=== PATIENT | female | born 1995 | race Caucasian/White ===

== ENCOUNTER 2017-06-29 10:08 | Inpatient (IN) | payer OTHER ==
[2017-06-29 11:49] VITALS: BMI 27.2
--- NOTE | 2017-06-29 13:39 | HP ---
COWS - Scale Resting Pulse: 4= [place] > 121 Sweatin= Chills/Flushing Restless Observation: 1= Difficult to Sit Still Pupil Size: 1= Pupils >than Normal Bone or Joint Aches: 2= Severe Diffuse Aches Runny Nose/ Eye Tearin= Runny Nose/Eyes GI Upset > 30mins: 2= Nausea/Diarrhea Tremor Observation: 2= Slight Tremor Visible Yawning Observation: 2= >3x During Session Anxiety or Irritability: 2=Irritable/Anxious Goose Flesh Skin: 0=Smooth Skin COWS Score: 19 Admission ROS S - HPI Chief Complaint: WITHDRAWAL SX OPIOID Allergies/Adverse Reactions: Allergies Allergy/AdvReac Type Severity Reaction Status Date / Time No Known Allergies Allergy Verified 06/29/17 13:34 History of Present Illness: 22 YEARS OLD FEMALE WITH LONG HISTORY OF OPIOID NICOTINE DEPENDENCE HAS SELF HARM BEHAVIOR CUT LEFT WRIST 2016 AND ANXIETY DEPRESSION IS ADMITTED TO DETOX Exam Limitations: No Limitations - Ebola screening Have you traveled outside of the country in the last 21 days: No (N) Have you had contact with anyone from an Ebola affected area: No Have you been sick,other than usual withdrawal symptoms: No Do you have a fever: No - Review of Systems Constitutional: Changes in sleep, Weight Stable EENT: reports: No Symptoms Reported Respiratory: reports: No Symptoms reported Cardiac: reports: No Symptoms Reported GI: reports: Diarrhea, Nausea, Poor Fluid Intake, Indigestion, Abdominal cramping : reports: No Symptoms Reported Musculoskeletal: reports: Back Pain, Joint Pain, Muscle Pain, Neck Pain Integumentary: reports: No Symptoms Reported Neuro: reports: Tremors Endocrine: reports: No Symptoms Reported Hematology: reports: No Symptoms Reported Psychiatric: reports: Judgement Intact, Orientated x3, Anxious, Depressed Other Systems: Reviewed and Negative Patient History - Patient Medical History Hx Anemia: No Hx Asthma: No Hx Chronic Obstructive Pulmonary Disease (COPD): No Hx Cancer: No Hx Cardiac Disorders: No Hx Congestive Heart Failure: No Hx Hypertension: No Hx Hypercholesterolemia: No Hx Pacemaker: No HX Cerebrovascular Accident: No Hx Seizures: No Hx Dementia: No Hx Diabetes: No Hx Gastrointestinal Disorders: No Hx Liver Disease: No Hx Genitourinary Disorders: No Hx Sexually Transmitted Disorders: No Hx Renal Disease (ESRD): No Hx Thyroid Disease: No Hx Human Immunodeficiency Virus (HIV): No Hx Hepatitis C: No Hx Depression: Yes Hx Suicide Attempt: Yes (2017 CUT LEFT WRIST) Hx Bipolar Disorder: No Hx Schizophrenia: No - Patient Surgical History Past Surgical History: No - PPD History Previous Implant?: Yes Documented Results: Negative w/o proof Implanted On Prior [facility] Admission?: No PPD to be Administered?: Yes - Reproductive History Patient is a Female of Child Bearing Age (11 -55 yrs old): Yes Last Menstrual Period: 06/15/17 Patient : No - Smoking Cessation Smoking history: Current every day smoker Have you smoked in the past 12 months: Yes Aproximately how many cigarettes per day: 20 Cigars Per Day: 0 Hx Chewing Tobacco Use: No Initiated information on smoking cessation: Yes 'Breaking Loose' booklet given: 06/29/17 - Substance & Tx. History Hx Alcohol Use: Yes Hx Substance Use: Yes Substance Use Type: Alcohol, Cocaine, Heroin Hx Substance Use Treatment: No ([facility]) Family Disease History - Family Disease History Family Disease History: Heart Disease: Father (), Other: Father, Mother (REMARRIED NO CONTACT) Other Family History: ONLY CHILD Admission Physical Exam S - Vital Signs Vital Signs: Vital Signs - 24 hr 06/29/17 11:45 Temperature 98.2 F Pulse Rate 128 H Respiratory 18 Rate Blood Pressure 144/84 - Physical General Appearance: Yes: Appropriately Dressed, Moderate Distress, Tremorous, Irritable, Sweating, Anxious HEENTM: Yes: Hearing grossly Normal, Normocephalic, Normal Voice Respiratory: Yes: Chest Non-Tender, Lungs Clear, Normal Breath Sounds, No Respiratory Distress, No Accessory Muscle Use Neck: Yes: Supple, Trachea in good position Breast: Yes: Breasts Symetrical, No Discharge Cardiology: Yes: Regular Rhythm, S1, S2, Tachycardia Abdominal: Yes: Non Tender, Flat, Increased Bowel Sounds Genitourinary: Yes: Within Normal Limits Back: Yes: Normal Inspection Musculoskeletal: Yes: full range of Motion, Gait Steady, Back pain, Muscle Pain Extremities: Yes: Normal Inspection, Normal Range of Motion, Non-Tender, Tremors Neurological: Yes: Fully Oriented, Alert, Motor Strength 5/5, Normal Response, Depressed Affect Integumentary: Yes: Warm Lymphatic: Yes: Within Normal Limits - Diagnostic (1) Opioid dependence with withdrawal Current Visit: Yes Status: Acute (2) Nicotine dependence Current Visit: Yes Status: Acute Qualifiers: Nicotine product type: cigarettes Substance use status: in withdrawal Qualified Code(s): F17.213 - Nicotine dependence, cigarettes, with withdrawal (3) Anxiety Current Visit: Yes Status: Suspected (4) Family history of sudden cardiac in father Current Visit: Yes Status: Suspected Cleared for Admission [facility] - Detox or Rehab [facility] Level of Care: Medically Managed Detox Regimen/Protocol: Methadone [facility] Breath Alcohol Content Breath Alcohol Content: 0.026 Urine Pregancy Test - Result Urine Test Results: Negative- NO Line Present Urine Drug Screen - Control Is Test Valid: Yes - Results Drug Screen Negative: No Urine Drug Screen Results: THC-Marijuana, PARMINDER-Cocaine, OPI-Opiates
[2017-06-29] MEDS ORDERED: LOPERAMIDE HCL 2 MG CAPSULE PO PRN (13:53)
[2017-06-29] MEDS ORDERED: MAGNESIUM CITRATE 300 ML BOTTLE PO PRN (13:53)
[2017-06-29] MEDS ORDERED: P-EPHED 60MG/TRIPROLIDI 2.5MG TABLET PO PRN (13:53)
[2017-06-29] MEDS ORDERED: MENTHOL/PHENOL 1 EACH UD MM PRN (13:53)
[2017-06-29] MEDS ORDERED: MAGNESIUM HYDROX 2400MG/30ML ORAL SUSPENSION 30 ML CUP PO PRN (13:53)
[2017-06-29] MEDS ORDERED: IBUPROFEN 400 MG TABLET (FP) PO PRN (13:53)
[2017-06-29] MEDS ORDERED: ACETAMINOPHEN 325 MG TABLET (FP) PO PRN (13:53)
[2017-06-29] MEDS ORDERED: guaiFENesin/D-METHORPHAN HB 10 ML UNIT-DOSE CUPS PO PRN (13:53)
[2017-06-29] MEDS ORDERED: MAG HYDROX/AL HYDROX/SIMETH 30 ML UNIT-DOSE CUP PO PRN (13:53)
[2017-06-29] MEDS ORDERED: METHADONE HCL 10 MG TABLET (FOR DETOX USE ONLY) PO ONE ×2 (14:45→23:00)
[2017-06-29] MEDS: diazePAM 5 MG TABLET PO PRN ×2 (15:23→19:38)
[2017-06-29] MEDS: NICOTINE 21 MG/24 HOURS TOPICAL PATCH TD SCH (15:29)
[2017-06-29 19:37] LABS: URINE APPEARANCE TURBID; URINE BILIRUBIN NEGATIVE (<2.0 mg/dL); URINE COLOR AMBER; URINE GLUCOSE (UA) NEGATIVE (NEGATIVE); URINE KETONE TRACE (NEGATIVE); URINE NITRITE NEGATIVE (NEGATIVE); URINE PROTEIN NEGATIVE (NEGATIVE)
[2017-06-29 19:44] LABS: URINE LEUK ESTERASE 3+ (NEGATIVE)
[2017-06-29 20:00] LABS: EPI CELLS MODERATE /HPF (FEW); URINE BACTERIA RARE /hpf (NONE SEEN); URINE MUCUS RARE
[2017-06-29] MEDS: NICOTINE POLACRILEX 2 MG GUM BUC PRN ×2 (20:05→22:11)
[2017-06-29] MEDS ORDERED: THIAMINE HCL 100 MG TABLET (FP) PO SCH (22:00)
[2017-06-29] MEDS ORDERED: MELATONIN 5 MG TABLETS PO PRN (22:00)
[2017-06-30] MEDS: diazePAM 5 MG TABLET PO PRN (06:39)
[2017-06-30] MEDS ORDERED: PRENATAL VITAMINS W/ FOLIC ACID TABLET (FP) PO SCH (10:00)
[2017-06-30] MEDS ORDERED: METHADONE HCL 10 MG TABLET (FOR DETOX USE ONLY) PO ONE (10:00)
--- NOTE | 2017-06-30 10:06 | EKG ---
Test Reason : Blood Pressure : / mmHG Vent. Rate : 072 BPM Atrial Rate : 072 BPM P-R Int : 122 ms QRS Dur : 088 ms QT Int : 382 ms P-R-T Axes : 038 072 048 degrees QTc Int : 418 ms NORMAL SINUS RHYTHM WITH SINUS ARRHYTHMIA NO PREVIOUS ECGS AVAILABLE Confirmed by RICHARD TOUSSAINT MD ([id number]) on 06/30/2017 10:06:32 AM Referred By: Confirmed By:RICHARD TOUSSAINT MD
[2017-06-30 10:13] VITALS: BP 130/80; PULSE 84; TEMP 99.1
[2017-06-30 10:13] LABS: HEMATOCRIT 39.3 % (32.4-45.2); HEMOGLOBIN 13.4 GM/dL (10.7-15.3); MCH 31.3 pg (25.7-33.7); MCHC 34.2 g/dl (32.0-36.0); MEAN CELL VOLUME 91.7 fl (80-96); MEAN PLT VOLUME 9.2 fl (7.5-11.1); PLATELET COUNT 276 K/MM3 (134-434); RBC 4.29 M/mm3 (3.60-5.2); RDW 12.7 % (11.6-15.6); WHITE BLOOD COUNT 6.4 K/mm3 (4.0-10.0)
--- NOTE | 2017-06-30 10:29 | CONSULT ---
[facility] Psychiatric Consult - Data Date of interview: 06/30/17 Admission source: [facility] Identifying data: Patient is a 22 year old single female, without kids, unemployed, and currently living with her boyfriend. Patientadmitted to for opiate dependence. Substance Abuse History: Following information confirmed with Mr. Canales: - Smoking Cessation. Smoking history: Current every day smoker. Have you smoked in the past 12 months: Yes. Aproximately how many cigarettes per day: 20. Cigars Per Day: 0. Hx Chewing Tobacco Use: No. Initiated information on smoking cessation: Yes. 'Breaking Loose' booklet given: 06/29/17. - Substance & Tx. History. Hx Alcohol Use: Yes. Hx Substance Use: Yes. Substance Use Type : Alcohol, Cocaine, Heroin. Hx Substance Use Treatment: No ([facility]) Medical History: Denies. Psychiatric History: Pt. reports admission to the psychiatric emergency room in 2016 after becoming intoxicated and cutting her left forearm. In 2015 patient was taken to [facility] after a friend reported to paramedics that she was endorsing suicidal ideation. Both emergency rooms admissions did not result in a inpatient psychiatric admission. Pt. denies h/o outpatient care. Pt. currently denies suicidal and homicidal ideation. Physical/Sexual Abuse/Trauma History: Denies. Mental Status Exam - Mental Status Exam Alert and Oriented to: Time, Place, Person Cognitive Function: Good Patient Appearance: Well Groomed Mood: Hopeful Affect: Mood Congruent Patient Behavior: Cooperative Speech Pattern: Appropriate Voice Loudness: Normal Thought Process: Goal Oriented Thought Disorder: Not Present Hallucinations: Denies Suicidal Ideation: Denies Homicidal Ideation: Denies Insight/Judgement: Poor Sleep: Poorly Appetite: Fair Muscle strength/Tone: Normal Gait/Station: Normal Psychiatric Findings - Problem List ([place] 1, 2,3) (1) Insomnia Current Visit: Yes Status: Acute (2) Nicotine dependence Current Visit: Yes Status: Acute Qualifiers: Nicotine product type: cigarettes Substance use status: in withdrawal Qualified Code(s): F17.213 - Nicotine dependence, cigarettes, with withdrawal (3) Opioid dependence with withdrawal Current Visit: Yes Status: Acute (4) Substance induced mood disorder Current Visit: Yes Status: Suspected - Initial Treatment Plan Initial Treatment Plan: Psychoeducation provided. Detoxification in progress. Benadryl 50mg qhs + Vistaril 25mg qhs prn ordered. Benefits and side effects discussed. Verbal consent given.
[2017-06-30 10:33] LABS: CHLORIDE 106 mmol/L (98-107); SODIUM 137 mmol/L (136-145)
[2017-06-30] MEDS: NICOTINE 21 MG/24 HOURS TOPICAL PATCH TD SCH (10:36)
[2017-06-30 10:40] LABS: ALBUMIN 4.6 g/dl (3.4-5.0); ALK PHOS 85 U/L (45-117); ANION GAP 6 (8-16); BILIRUBIN,TOTAL 0.5 mg/dL (0.2-1.0); BLOOD UREA NITROGEN 11 mg/dL (7-18); CALCIUM 9.4 mg/dL (8.5-10.1); CO2 25 mmol/L (21-32); CREATININE 0.8 mg/dL (0.55-1.02); GLUCOSE,RANDOM 99 mg/dL (74-106); SGOT/AST 29 U/L (15-37); SGPT/ALT 60 U/L (12-78); TOT PROT 7.7 g/dl (6.4-8.2)
--- NOTE | 2017-06-30 10:44 | PN ---
[facility] COWS - Scale Resting Pulse: 1= [place] 81-100 Sweatin= Chills/Flushing Restless Observation: 3= Extraneous Movement Pupil Size: 1= Pupils >than Normal Bone or Joint Aches: 2= Severe Diffuse Aches Runny Nose/ Eye Tearin= Runny Nose/Eyes GI Upset > 30mins: 2= Nausea/Diarrhea Tremor Observation of Outstretched Hands: 2= Slight Tremor Visible Yawning Observation: 1= 1-2x During Session Anxiety or Irritability: 2=Irritable/Anxious Goose Flesh Skin: 0=Smooth Skin COWS Score: 17 S Progress Note (SOAP) Subjective: ALERT,IRRITABLE,ANXIOUS,INTERRUPTED SLEEP,PAIN IN THE BODY AND BACK,TREMOR Objective: 06/30/17 10:40 Vital Signs Temperature 99.1 F 06/30/17 10:00 Pulse Rate 84 06/30/17 10:00 Respiratory Rate 16 06/30/17 10:00 Blood Pressure 130/80 06/30/17 10:00 O2 Sat by Pulse Oximetry (%) EKG NSR,WITH SINUS ARRHYTHMIA,NORMAL ECG PROLONG QT 382/418 06/30/17 10:56 Laboratory Last Values Urine Color Cel[place] 06/29/17 15:00 Urine Appearance Turbid 06/29/17 15:00 Urine pH 5.0 (5.0-8.0) 06/29/17 15:00 Ur Specific [place] 1.031 (1.001-1.035) 06/29/17 15:00 Urine Protein Negative (NEGATIVE) 06/29/17 15:00 Urine Glucose (UA) Negative (NEGATIVE) 06/29/17 15:00 Urine Ketones Trace (NEGATIVE) H 06/29/17 15:00 Urine Blood Negative (NEGATIVE) 06/29/17 15:00 Urine Nitrite Negative (NEGATIVE) 06/29/17 15:00 Urine Bilirubin Negative (<2.0 mg/dL) 06/29/17 15:00 Urine Urobilinogen 2.0 mg/dL (0.2-1.0) H 06/29/17 15:00 Ur Leukocyte Esterase 3+ (NEGATIVE) H 06/29/17 15:00 Urine WBC (Auto) 4 /hpf (3-5) 06/29/17 15:00 Urine RBC (Auto) 1 /hpf (0-3) 06/29/17 15:00 Ur Epithelial Cells Moderate /HPF (FEW) 06/29/17 15:00 Urine Bacteria Rare /hpf (NONE SEEN) 06/29/17 15:00 Urine Mucus Rare 06/29/17 15:00 RPR Titer Nonreactive (NONREACTIVE) 06/30/17 06:00 HIV 1&2 Antibody Screen Negative 06/29/17 06:00 HIV P24 Antigen Negative 06/29/17 06:00 LABS PENDING Assessment: 06/30/17 10:56 WITHDRAWAL SYMPTOM Plan: CONTINUE DETOX
--- NOTE | 2017-06-30 11:04 | DS ---
[facility] Detox Discharge Summary Admission Date: 06/29/17 Discharge Date: 06/30/17 - History Present History: Opioid Dependence Additional Comments: PATIENT DID NOT WANT TO COMPLETE TREATMENT,STATED SHE IS NOT READY TO CONTINUE TREATMENT, ALL ATTEMPTS TO CONVINCE PATIENT TO STAY WITH NO AVAIL,SIGNED RELEASE AMA Pertinent Past History: NICOTINE DEPENDENCE ANXIETY - Physical Exam Results Vital Signs: Vital Signs Temperature 99.1 F 06/30/17 10:00 Pulse Rate 84 06/30/17 10:00 Respiratory Rate 16 06/30/17 10:00 Blood Pressure 130/80 06/30/17 10:00 O2 Sat by Pulse Oximetry (%) Pertinent Admission Physical Exam Findings: WITHDRAWAL SIGNS AND SYMPTOM Vital Signs Temperature 99.1 F 06/30/17 10:00 Pulse Rate 84 06/30/17 10:00 Respiratory Rate 16 06/30/17 10:00 Blood Pressure 130/80 06/30/17 10:00 O2 Sat by Pulse Oximetry (%) Laboratory Last Values WBC 6.4 K/mm3 (4.0-10.0) 06/30/17 06:00 RBC 4.29 M/mm3 (3.60-5.2) 06/30/17 06:00 Hgb 13.4 GM/dL (10.7-15.3) 06/30/17 06:00 Hct 39.3 % (32.4-45.2) 06/30/17 06:00 MCV 91.7 fl (80-96) 06/30/17 06:00 MCH 31.3 pg (25.7-33.7) 06/30/17 06:00 MCHC 34.2 g/dl (32.0-36.0) 06/30/17 06:00 RDW 12.7 % (11.6-15.6) 06/30/17 06:00 Plt Count 276 K/MM3 (134-434) 06/30/17 06:00 MPV 9.2 fl (7.5-11.1) 06/30/17 06:00 Sodium 137 mmol/L (136-145) 06/30/17 06:00 Potassium 4.0 mmol/L (3.5-5.1) 06/30/17 06:00 Chloride 106 mmol/L (98-107) 06/30/17 06:00 Carbon Dioxide 25 mmol/L (21-32) 06/30/17 06:00 Anion Gap 6 (8-16) L 06/30/17 06:00 BUN 11 mg/dL (7-18) 06/30/17 06:00 Creatinine 0.8 mg/dL (0.55-1.02) 06/30/17 06:00 Creat Clearance w eGFR > 60 (>60) 06/30/17 06:00 Random Glucose 99 mg/dL (74-106) 06/30/17 06:00 Calcium 9.4 mg/dL (8.5-10.1) 06/30/17 06:00 Total Bilirubin 0.5 mg/dL (0.2-1.0) 06/30/17 06:00 AST 29 U/L (15-37) 06/30/17 06:00 ALT 60 U/L (12-78) 06/30/17 06:00 Alkaline Phosphatase 85 U/L (45-117) 06/30/17 06:00 Total Protein 7.7 g/dl (6.4-8.2) 06/30/17 06:00 Albumin 4.6 g/dl (3.4-5.0) 06/30/17 06:00 Urine Color Celeste 06/29/17 15:00 Urine Appearance Turbid 06/29/17 15:00 Urine pH 5.0 (5.0-8.0) 06/29/17 15:00 Ur Specific [place] 1.031 (1.001-1.035) 06/29/17 15:00 Urine Protein Negative (NEGATIVE) 06/29/17 15:00 Urine Glucose (UA) Negative (NEGATIVE) 06/29/17 15:00 Urine Ketones Trace (NEGATIVE) H 06/29/17 15:00 Urine Blood Negative (NEGATIVE) 06/29/17 15:00 Urine Nitrite Negative (NEGATIVE) 06/29/17 15:00 Urine Bilirubin Negative (<2.0 mg/dL) 06/29/17 15:00 Urine Urobilinogen 2.0 mg/dL (0.2-1.0) H 06/29/17 15:00 Ur Leukocyte Esterase 3+ (NEGATIVE) H 06/29/17 15:00 Urine WBC (Auto) 4 /hpf (3-5) 06/29/17 15:00 Urine RBC (Auto) 1 /hpf (0-3) 06/29/17 15:00 Ur Epithelial Cells Moderate /HPF (FEW) 06/29/17 15:00 Urine Bacteria Rare /hpf (NONE SEEN) 06/29/17 15:00 Urine Mucus Rare 06/29/17 15:00 RPR Titer Nonreactive (NONREACTIVE) 06/30/17 06:00 HIV 1&2 Antibody Screen Negative 06/29/17 06:00 HIV P24 Antigen Negative 06/29/17 06:00 - Medication Discharge Medications: Ambulatory Orders NK [No Known Home Medication] 06/29/17 - Diagnosis (1) Opioid dependence with withdrawal Current Visit: Yes Status: Acute (2) Nicotine dependence Current Visit: Yes Status: Acute Qualifiers: Nicotine product type: cigarettes Substance use status: in withdrawal Qualified Code(s): F17.213 - Nicotine dependence, cigarettes, with withdrawal (3) Anxiety Current Visit: Yes Status: Suspected (4) Family history of sudden cardiac in father Current Visit: Yes Status: Suspected (5) Substance induced mood disorder Current Visit: Yes Status: Suspected - AMA Did Patient Leave Against Medical Advice: Yes
[2017-07-01] MEDS ORDERED: METHADONE HCL 5 MG TABLET (FOR DETOX USE ONLY) PO ONE (10:00)
[2017-07-02] MEDS ORDERED: METHADONE HCL 5 MG TABLET (FOR DETOX USE ONLY) PO ONE (10:00)
[2017-07-03] MEDS ORDERED: METHADONE HCL 10 MG TABLET (FOR DETOX USE ONLY) PO ONE (10:00)
[2017-07-04] MEDS ORDERED: METHADONE HCL 5 MG TABLET (FOR DETOX USE ONLY) PO ONE (06:00)
== END 2017-06-30 11:30 | disposition left against medical advice (07) | DRG 770 ==
LOC: YASAS 10:08 → Y6N 14:38
PROVIDERS: ADMIT Internal Medicine; ATTEND Internal Medicine
PROC: HZ2ZZZZ Detoxification Services for Substance Abuse Treatment (ICD-10-PCS; principal; 2017-06-29)
DX: F11.23 Opioid dependence with withdrawal (principal); F17.213 Nicotine dependence, cigarettes, with withdrawal; F19.24 Other psychoactive substance dependence with psychoactive substance-induced mood disorder; F41.9 Anxiety disorder, unspecified; G47.00 Insomnia, unspecified; Z82.41 Family history of sudden cardiac death; Z91.5 Personal history of self-harm
CPT/HCPCS: 36415; 80053; 81003; 81015; 85027; 86593; 87389; 93005; 93010

== ENCOUNTER 2017-11-14 10:48 | Inpatient (IN) | payer OTHER ==
[2017-11-14 12:10] VITALS: BMI 26.2
--- NOTE | 2017-11-14 17:40 | HP ---
"COWS - Scale Resting Pulse: 1= [place] 81-100 Sweatin= Beads of Sweat on Face Restless Observation: 1= Difficult to Sit Still Pupil Size: 2= Moderately Dilated (4 mm) Bone or Joint Aches: 0= None Runny Nose/ Eye Tearin= Runny Nose/Eyes GI Upset > 30mins: 2= Nausea/Diarrhea (No diarrhea) Tremor Observation: 4= Gross Tremor/Twitching Yawning Observation: 0= None Anxiety or Irritability: 1=Feels Anxious/Irritable Goose Flesh Skin: 3=Piloerection COWS Score: 19 Admission ROS [facility] Chief Complaint: Here because of heroin withdrawal. Allergies/Adverse Reactions: Allergies Allergy/AdvReac Type Severity Reaction Status Date / Time No Known Allergies Allergy Verified 11/14/17 15:12 History of Present Illness: Heroin use began at age 20, intranasal. Cocaine use began at age 14. Xanax use disorder since age 14, intermittently. Nicotine use began at age 12. Marijuana use began at age 12. Denies seizures or blackouts. Longest length of sobriety 2 weeks after last detox at [facility]. Denies significant PMH/PSH. Search Terms: Jamar Parker, 1995 Search Date: 11/14/2017 08:20:43 PM The Drug Utilization Report below displays all of the controlled substance prescriptions, if any, that your patient has filled in the last twelve months. The information displayed on this report is compiled from pharmacy submissions to the Department, and accurately reflects the information as submitted by the pharmacies. This report was requested by: Angelique Parra | Reference #: [id number] There are no results for the search terms that you entered. Exam Limitations: No Limitations - Ebola screening Have you traveled outside of the country in the last 21 days: No Have you had contact with anyone from an Ebola affected area: No Have you been sick,other than usual withdrawal symptoms: No Do you have a fever: No - Review of Systems Constitutional: Chills, Diaphoresis, Changes in sleep (Diofficulty falling asleep) EENT: reports: No Symptoms Reported Respiratory: reports: No Symptoms reported Cardiac: reports: No Symptoms Reported GI: reports: Nausea (r/t withdrawal) : reports: No Symptoms Reported Musculoskeletal: reports: No Symptoms Reported Integumentary: reports: No Symptoms Reported Neuro: reports: Tremors (r/t withdrawal) Endocrine: reports: No Symptoms Reported Hematology: reports: No Symptoms Reported Psychiatric: reports: Judgement Intact, Orientated x3, Agitated, Anxious, Depressed (Denies thoughts of harming self or others) Patient History - Patient Medical History Hx Anemia: No Hx Asthma: No Hx Chronic Obstructive Pulmonary Disease (COPD): No Hx Cancer: No Hx Cardiac Disorders: No Hx Congestive Heart Failure: No Hx Hypertension: No Hx Hypercholesterolemia: No Hx Pacemaker: No HX Cerebrovascular Accident: No Hx Seizures: No Hx Dementia: No Hx Diabetes: No Hx Gastrointestinal Disorders: No Hx Liver Disease: No Hx Genitourinary Disorders: No Hx Sexually Transmitted Disorders: No Hx Renal Disease (ESRD): No Hx Thyroid Disease: No Hx Human Immunodeficiency Virus (HIV): No (2018) Hx Hepatitis C: No Hx Depression: Yes Hx Suicide Attempt: No Hx Bipolar Disorder: No Hx Schizophrenia: No - Patient Surgical History Past Surgical History: No Hx Neurologic Surgery: No Hx Cataract Extraction: No Hx Cardiac Surgery: No Hx Lung Surgery: No Hx Breast Surgery: No Hx Breast Biopsy: No Hx Abdominal Surgery: No Hx Appendectomy: No Hx Cholecystectomy: No Hx Genitourinary Surgery: No Hx Section: No Hx Orthopedic Surgery: No Anesthesia Reaction: No - PPD History Previous Implant?: Yes Documented Results: Negative w/proof Implanted On Prior [facility] Admission?: Yes Date: 07/01/17 PPD to be Administered?: No - Reproductive History Patient is a Female of Child Bearing Age (11 -55 yrs old): Yes Last Menstrual Period: 10/24/17 (Usually regular) Patient : No - Smoking Cessation Smoking history: Current every day smoker Have you smoked in the past 12 months: Yes Aproximately how many cigarettes per day: 20 Cigars Per Day: 0 Hx Chewing Tobacco Use: No Initiated information on smoking cessation: Yes 'Breaking Loose' booklet given: 11/14/17 - Substance & Tx. History Hx Alcohol Use: Yes Substance Use Type: Cocaine, Heroin, Marijuana, Tranquilizers (benzo) - Substances Abused Heroin Route: Inhalation Frequency: Daily Amount used: 20-25 bags Age of first use: 20 Date of Last Use: 11/14/17 Cocaine Route: Inhalation Frequency: 1-3 times last 30 days Amount used: 1-2 bags Age of first use: 14 Date of Last Use: 11/12/17 Alprazolam (Xanax) Route: Oral Frequency: 1-3 times last 30 days Amount used: 2mg Age of first use: 14 Date of Last Use: 11/14/17 Marijuana/Hashish Route: Smoking Frequency: 3-6 times per week Amount used: 1 blunt Age of first use: 12 Date of Last Use: 11/14/17 Family Disease History - Family Disease History Family Disease History: Heart Disease: Father (), Other: Father, Mother (REMARRIED NO CONTACT) Admission Physical Exam [facility] - Vital Signs Vital Signs: Vital Signs - 24 hr 11/14/17 12:06 Temperature 97.1 F L Pulse Rate 88 Respiratory 18 Rate Blood Pressure 129/74 - Physical General Appearance: Yes: Tremorous, Sweating, Anxious HEENTM: Yes: EOMI, Hearing grossly Normal, Normal ENT Inspection, Normocephalic , NOLBERTO (4 mm), Rhinorrhea (clear) Respiratory: Yes: Chest Non-Tender, Lungs Clear, Normal Breath Sounds, No Respiratory Distress Neck: Yes: No masses,lesions,Nodules, Supple Breast: Yes: Breast Exam Deferred Cardiology: Yes: Regular Rhythm, Regular Rate, S1, S2 Abdominal: Yes: Non Tender, Flat, Soft, Increased Bowel Sounds Genitourinary: Yes: Within Normal Limits Back: Yes: Normal Inspection Musculoskeletal: Yes: full range of Motion, Gait Steady Extremities: Yes: Normal Capillary Refill, Normal Range of Motion, Non-Tender, Tremors (of hands when arms extended) Neurological: Yes: sql server developer 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 NML intact, Fully Oriented, Alert, Motor Strength 5/5, Normal Mood/Affect, Normal Response Integumentary: Yes: Normal Color, Dry (decreased skin turgor.), Warm Lymphatic: Yes: Within Normal Limits - Diagnostic (1) Cocaine abuse, uncomplicated Current Visit: Yes Status: Chronic (2) Cannabis abuse, uncomplicated Current Visit: Yes Status: Chronic (3) Nicotine dependence Current Visit: Yes Status: Acute Qualifiers: Nicotine product type: cigarettes Substance use status: in withdrawal Qualified Code(s): F17.213 - Nicotine dependence, cigarettes, with withdrawal (4) Opioid dependence with withdrawal Current Visit: Yes Status: Acute (5) Sedative, hypnotic or anxiolytic abuse, uncomplicated Current Visit: Yes Status: Chronic Cleared for Admission [facility] - Detox or Rehab [facility] Level of Care: Medically Managed Detox Regimen/Protocol: Methadone [facility] Breath Alcohol Content Breath Alcohol Content: 0 Urine Pregancy Test - Result Urine Test Results: Negative- NO Line Present Urine Drug Screen - Results Drug Screen Negative: No Urine Drug Screen Results: THC-Marijuana, PARMINDER-Cocaine, OPI-Opiates, BZO- Benzodiazepines, FEN-Fentanyl"
[2017-11-14] MEDS ORDERED: MENTHOL/PHENOL 1 EACH UD MM PRN (18:08)
[2017-11-14] MEDS ORDERED: MAG HYDROX/AL HYDROX/SIMETH 30 ML UNIT-DOSE CUP PO PRN (18:08)
[2017-11-14] MEDS ORDERED: MAGNESIUM CITRATE 300 ML BOTTLE PO PRN (18:08)
[2017-11-14] MEDS ORDERED: NICOTINE POLACRILEX 2 MG GUM BC PRN (18:08)
[2017-11-14] MEDS ORDERED: IBUPROFEN 400 MG TABLET (FP) PO PRN (18:08)
[2017-11-14] MEDS ORDERED: P-EPHED 60MG/TRIPROLIDI 2.5MG TABLET PO PRN (18:08)
[2017-11-14] MEDS ORDERED: ACETAMINOPHEN 325 MG TABLET (FP) PO PRN (18:08)
[2017-11-14] MEDS ORDERED: MAGNESIUM HYDROX 2400MG/30ML ORAL SUSPENSION 30 ML CUP PO PRN (18:08)
[2017-11-14] MEDS ORDERED: LOPERAMIDE HCL 2 MG CAPSULE PO PRN (18:08)
[2017-11-14] MEDS ORDERED: guaiFENesin/D-METHORPHAN HB 10 ML UNIT-DOSE CUPS PO PRN (18:08)
[2017-11-14] MEDS ORDERED: METHADONE HCL 10 MG TABLET (FOR DETOX USE ONLY) PO ONE ×2 (18:45→23:00)
[2017-11-14] MEDS ORDERED: diazePAM 5 MG TABLET PO ONE (18:45)
[2017-11-14] MEDS ORDERED: MELATONIN 5 MG TABLETS PO PRN (22:00)
[2017-11-14] MEDS: diazePAM 5 MG TABLET PO SCH (22:53)
[2017-11-14] MEDS: THIAMINE HCL 100 MG TABLET (FP) PO SCH (22:53)
[2017-11-15 01:00] LABS: URINE APPEARANCE CLOUDY; URINE BILIRUBIN NEGATIVE (<2.0 mg/dL); URINE COLOR YELLOW; URINE GLUCOSE (UA) NEGATIVE (NEGATIVE); URINE KETONE NEGATIVE (NEGATIVE); URINE NITRITE NEGATIVE (NEGATIVE); URINE PROTEIN NEGATIVE (NEGATIVE); URINE UROBILINOGEN NEGATIVE mg/dL (0.2-1.0)
[2017-11-15 01:05] LABS: URINE LEUK ESTERASE 1+ (NEGATIVE)
[2017-11-15 01:08] LABS: EPI CELLS MANY /HPF (FEW); URINE BACTERIA RARE /hpf (NONE SEEN); URINE MUCUS FEW
[2017-11-15] MEDS: diazePAM 5 MG TABLET PO SCH ×3 (07:00→22:42)
--- NOTE | 2017-11-15 09:10 | CONSULT ---
[facility] Psychiatric Consult - Data Date of interview: 11/15/17 Admission source: [facility] Identifying data: This is 22 years old obese female, single mother of two, domiciled, with no finantial support, with psychiatric hospitalization mari , reports Heroin, Cocasine, Xanax and Nixcotine dependece, reports withdrawal symptoms and seeking detox. Substance Abuse History: Smoking history: Current every day smoker. Have you smoked in the past 12 months: Yes. Aproximately how many cigarettes per day: 20. Cigars Per Day: 0. Hx Chewing Tobacco Use: No. Initiated information on smoking cessation: Yes. 'Breaking Loose' booklet given: 11/14/17. - Substance & Tx. History. Hx Alcohol Use: Yes. Substance Use Type: Cocaine, Heroin, Marijuana, Tranquilizers (benzo). - Substances Abused. Heroin. Route: Inhalation. Frequency: Daily. Amount used: 20-25 bags. Age of first use: 20. Date of Last Use: 11/14/17. Cocaine. Route: Inhalation. Frequency: 1-3 times last 30 days. Amount used: 1-2 bags. Age of first use: 14. Date of Last Use: 11/12/17. Alprazolam (Xanax). Route: Oral. Frequency: 1-3 times last 30 days. Amount used: 2mg. Age of first use: 14. Date of Last Use: 11/14. Marijuana/Hashish. Route: Smoking. Frequency: 3-6 times per week. Amount used: 1 blunt. Age of first use: 12. Date of Last Use: 11/14/17 Medical History: Denies Psychiatric History: Patient reports history of depression and anxiwety, reports uncleat psychiatrioc admission on 2012, denies suicidal, homicidal history, reports currently on: Paxil 40mg poqd. As per computer there is a history of MDD Physical/Sexual Abuse/Trauma History: Denies Additional Comment: Paxil 40mg poqd Mental Status Exam - Mental Status Exam Alert and Oriented to: Person Cognitive Function: Fair Patient Appearance: Unkempt Mood: Sad Affect: Flat Patient Behavior: Sedated Speech Pattern: Inappropriate Voice Loudness: Mildly Soft/Quiet Thought Process: Goal Oriented Thought Disorder: Being Controlled Hallucinations: Denies Suicidal Ideation: Denies Homicidal Ideation: Denies Insight/Judgement: Fair Sleep: Difficulty falling asleep Appetite: Weight gain Muscle strength/Tone: Mild Hypotonicity Gait/Station: Shuffling Additional Comments: Paxil 40mg poqd Psychiatric Findings - Problem List ([place] 1, 2,3) (1) Nicotine dependence Current Visit: Yes Status: Acute Qualifiers: Nicotine product type: cigarettes Substance use status: in withdrawal Qualified Code(s): F17.213 - Nicotine dependence, cigarettes, with withdrawal (2) Opioid dependence with withdrawal Current Visit: Yes Status: Acute (3) Cannabis abuse, uncomplicated Current Visit: Yes Status: Chronic (4) Cocaine abuse, uncomplicated Current Visit: Yes Status: Chronic (5) Sedative, hypnotic or anxiolytic abuse, uncomplicated Current Visit: Yes Status: Chronic (6) Anxiety Current Visit: No Status: Suspected (7) Substance induced mood disorder Current Visit: No Status: Suspected - Initial Treatment Plan Initial Treatment Plan: Paxil 40mg poqd
[2017-11-15] MEDS ORDERED: METHADONE HCL 10 MG TABLET (FOR DETOX USE ONLY) PO SCH (10:00)
[2017-11-15 10:03] LABS: HEMATOCRIT 38.9 % (32.4-45.2); HEMOGLOBIN 13.1 GM/dL (10.7-15.3); MCH 30.6 pg (25.7-33.7); MCHC 33.7 g/dl (32.0-36.0); MEAN CELL VOLUME 90.9 fl (80-96); MEAN PLT VOLUME 8.9 fl (7.5-11.1); PLATELET COUNT 238 K/MM3 (134-434); RBC 4.27 M/mm3 (3.60-5.2); RDW 12.8 % (11.6-15.6); WHITE BLOOD COUNT 6.7 K/mm3 (4.0-10.0)
[2017-11-15 10:12] LABS: CHLORIDE 106 mmol/L (98-107); POTASSIUM 4.7 mmol/L (3.5-5.1); SODIUM 142 mmol/L (136-145)
[2017-11-15 10:19] LABS: ALBUMIN 3.7 g/dl (3.4-5.0); ALK PHOS 86 U/L (45-117); ANION GAP 7 MMOL/L (8-16); BILIRUBIN,TOTAL 0.1 mg/dL (0.2-1.0); BLOOD UREA NITROGEN 15 mg/dL (7-18); CO2 29 mmol/L (21-32); CREATININE 0.7 mg/dL (0.55-1.02); GLUCOSE,RANDOM 94 mg/dL (74-106); SGOT/AST 29 U/L (15-37); SGPT/ALT 44 U/L (12-78); TOT PROT 6.4 g/dl (6.4-8.2)
--- NOTE | 2017-11-15 10:44 | PN ---
S COWS - Scale Resting Pulse: 0= [place] 80 or Below Sweatin= Chills/Flushing Restless Observation: 1= Difficult to Sit Still Pupil Size: 1= Pupils >than Normal Bone or Joint Aches: 2= Severe Diffuse Aches Runny Nose/ Eye Tearin= Nasal Congestion GI Upset > 30mins: 2= Nausea/Diarrhea Tremor Observation of Outstretched Hands: 2= Slight Tremor Visible Yawning Observation: 1= 1-2x During Session Anxiety or Irritability: 2=Irritable/Anxious Goose Flesh Skin: 3=Piloerection COWS Score: 16 S Progress Note (SOAP) Subjective: sweat body aches joints pain tremor muscle cramping restlessness trouble sleep at night Objective: 11/15/17 10:44 Vital Signs Temperature 97.5 F L 11/15/17 09:21 Pulse Rate 52 L 11/15/17 09:21 Respiratory Rate 16 11/15/17 09:21 Blood Pressure 112/69 11/15/17 09:21 O2 Sat by Pulse Oximetry (%) Laboratory Last Values WBC 6.7 K/mm3 (4.0-10.0) 11/15/17 07:00 RBC 4.27 M/mm3 (3.60-5.2) 11/15/17 07:00 Hgb 13.1 GM/dL (10.7-15.3) 11/15/17 07:00 Hct 38.9 % (32.4-45.2) 11/15/17 07:00 MCV 90.9 fl (80-96) 11/15/17 07:00 MCH 30.6 pg (25.7-33.7) 11/15/17 07:00 MCHC 33.7 g/dl (32.0-36.0) 11/15/17 07:00 RDW 12.8 % (11.6-15.6) 11/15/17 07:00 Plt Count 238 K/MM3 (134-434) 11/15/17 07:00 MPV 8.9 fl (7.5-11.1) 11/15/17 07:00 Sodium 142 mmol/L (136-145) 11/15/17 07:00 Potassium 4.7 mmol/L (3.5-5.1) 11/15/17 07:00 Chloride 106 mmol/L (98-107) 11/15/17 07:00 Carbon Dioxide 29 mmol/L (21-32) 11/15/17 07:00 Anion Gap 7 MMOL/L (8-16) L 11/15/17 07:00 BUN 15 mg/dL (7-18) 11/15/17 07:00 Creatinine 0.7 mg/dL (0.55-1.02) 11/15/17 07:00 Creat Clearance w eGFR > 60 (>60) 11/15/17 07:00 Random Glucose 94 mg/dL (74-106) 11/15/17 07:00 Calcium 9.0 mg/dL (8.5-10.1) 11/15/17 07:00 Total Bilirubin 0.1 mg/dL (0.2-1.0) L 11/15/17 07:00 AST 29 U/L (15-37) 11/15/17 07:00 ALT 44 U/L (12-78) 11/15/17 07:00 Alkaline Phosphatase 86 U/L (45-117) 11/15/17 07:00 Total Protein 6.4 g/dl (6.4-8.2) 11/15/17 07:00 Albumin 3.7 g/dl (3.4-5.0) 11/15/17 07:00 Urine Color Yellow 11/14/17 23:22 Urine Appearance Cloudy 11/14/17 23:22 Urine pH 5.0 (5.0-8.0) 11/14/17 23:22 Ur Specific [place] 1.020 (1.001-1.035) 11/14/17 23:22 Urine Protein Negative (NEGATIVE) 11/14/17 23:22 Urine Glucose (UA) Negative (NEGATIVE) 11/14/17 23:22 Urine Ketones Negative (NEGATIVE) 11/14/17 23:22 Urine Blood Negative (NEGATIVE) 11/14/17 23:22 Urine Nitrite Negative (NEGATIVE) 11/14/17 23:22 Urine Bilirubin Negative (<2.0 mg/dL) 11/14/17 23:22 Urine Urobilinogen Negative mg/dL (0.2-1.0) 11/14/17 23:22 Ur Leukocyte Esterase 1+ (NEGATIVE) H D 11/14/17 23:22 Urine WBC (Auto) 2 /hpf (3-5) 11/14/17 23:22 Urine RBC (Auto) 1 /hpf (0-3) 11/14/17 23:22 Ur Epithelial Cells Many /HPF (FEW) 11/14/17 23:22 Urine Bacteria Rare /hpf (NONE SEEN) 11/14/17 23:22 Urine Mucus Few 11/14/17 23:22 lab noted increase oral fluid Assessment: 11/15/17 10:45 withdrawal sx Plan: continue detox
[2017-11-15] MEDS: PARoxetine HCL 20 MG TABLET (FP) PO SCH (10:49)
[2017-11-15] MEDS: PRENATAL VITAMINS W/ FOLIC ACID TABLET (FP) PO SCH (10:49)
[2017-11-15] MEDS: NICOTINE 21 MG/24 HOURS TOPICAL PATCH TD SCH (10:50)
[2017-11-15] MEDS: diazePAM 5 MG TABLET PO PRN ×2 (10:50→17:43)
--- NOTE | 2017-11-15 11:45 | EKG ---
Test Reason : Blood Pressure : / mmHG Vent. Rate : 071 BPM Atrial Rate : 071 BPM P-R Int : 128 ms QRS Dur : 094 ms QT Int : 402 ms P-R-T Axes : 055 077 059 degrees QTc Int : 436 ms NORMAL SINUS RHYTHM NORMAL ECG WHEN COMPARED WITH ECG OF 29-JUN-2017 15:37, NO SIGNIFICANT CHANGE WAS FOUND Confirmed by TEGAN ROSARIO MD ([id number]) on 11/15/2017 11:44:59 AM Referred By: Confirmed By:TEGAN ROSARIO MD
[2017-11-15] MEDS: THIAMINE HCL 100 MG TABLET (FP) PO SCH (22:42)
[2017-11-16 09:13] VITALS: BP 126/66; PULSE 58; TEMP 97.9
[2017-11-16] MEDS ORDERED: METHADONE HCL 5 MG TABLET (FOR DETOX USE ONLY) PO SCH (10:00)
[2017-11-16] MEDS ORDERED: diazePAM 5 MG TABLET PO SCH (10:00)
[2017-11-16] MEDS: PARoxetine HCL 20 MG TABLET (FP) PO SCH (11:13)
[2017-11-16] MEDS: PRENATAL VITAMINS W/ FOLIC ACID TABLET (FP) PO SCH (11:14)
[2017-11-16] MEDS: NICOTINE 21 MG/24 HOURS TOPICAL PATCH TD SCH (11:14)
--- NOTE | 2017-11-16 11:26 | DS ---
[facility] Detox Discharge Summary Admission Date: 11/14/17 Discharge Date: 11/16/17 - History Present History: Opioid Dependence, Sedative Dependence Additional Comments: 22 years old female admitted on 11/14/17 for opiate and benzo withdrawal sx insists to terminate the detox regimen that "I have go to work" stated that have strong support network at home "mom is my best friend" patient wants to go to her psychiatrist for anxiety that she always has anxiety since young age reported can manage the withdrawal sx that she has 20 mg methadone at home and "I can detox myself" health teaching on risks of opiate and benzo withdrawal related complications Pertinent Past History: patient insists to leave the detox unit wants to go home and fully supported by the family member encourage community self help groups and meeting - Physical Exam Results Vital Signs: Vital Signs Temperature 97.9 F 11/16/17 09:13 Pulse Rate 58 L 11/16/17 09:13 Respiratory Rate 16 11/16/17 09:13 Blood Pressure 126/66 11/16/17 09:13 O2 Sat by Pulse Oximetry (%) Pertinent Admission Physical Exam Findings: opiate benzo withdrawal sx Vital Signs Temperature 97.9 F 11/16/17 09:13 Pulse Rate 58 L 11/16/17 09:13 Respiratory Rate 16 11/16/17 09:13 Blood Pressure 126/66 11/16/17 09:13 O2 Sat by Pulse Oximetry (%) Laboratory Last Values WBC 6.7 K/mm3 (4.0-10.0) 11/15/17 07:00 RBC 4.27 M/mm3 (3.60-5.2) 11/15/17 07:00 Hgb 13.1 GM/dL (10.7-15.3) 11/15/17 07:00 Hct 38.9 % (32.4-45.2) 11/15/17 07:00 MCV 90.9 fl (80-96) 11/15/17 07:00 MCH 30.6 pg (25.7-33.7) 11/15/17 07:00 MCHC 33.7 g/dl (32.0-36.0) 11/15/17 07:00 RDW 12.8 % (11.6-15.6) 11/15/17 07:00 Plt Count 238 K/MM3 (134-434) 11/15/17 07:00 MPV 8.9 fl (7.5-11.1) 11/15/17 07:00 Sodium 142 mmol/L (136-145) 11/15/17 07:00 Potassium 4.7 mmol/L (3.5-5.1) 11/15/17 07:00 Chloride 106 mmol/L (98-107) 11/15/17 07:00 Carbon Dioxide 29 mmol/L (21-32) 11/15/17 07:00 Anion Gap 7 MMOL/L (8-16) L 11/15/17 07:00 BUN 15 mg/dL (7-18) 11/15/17 07:00 Creatinine 0.7 mg/dL (0.55-1.02) 11/15/17 07:00 Creat Clearance w eGFR > 60 (>60) 11/15/17 07:00 Random Glucose 94 mg/dL (74-106) 11/15/17 07:00 Calcium 9.0 mg/dL (8.5-10.1) 11/15/17 07:00 Total Bilirubin 0.1 mg/dL (0.2-1.0) L 11/15/17 07:00 AST 29 U/L (15-37) 11/15/17 07:00 ALT 44 U/L (12-78) 11/15/17 07:00 Alkaline Phosphatase 86 U/L (45-117) 11/15/17 07:00 Total Protein 6.4 g/dl (6.4-8.2) 11/15/17 07:00 Albumin 3.7 g/dl (3.4-5.0) 11/15/17 07:00 Urine Color Yellow 11/14/17 23:22 Urine Appearance Cloudy 11/14/17 23:22 Urine pH 5.0 (5.0-8.0) 11/14/17 23:22 Ur Specific [place] 1.020 (1.001-1.035) 11/14/17 23:22 Urine Protein Negative (NEGATIVE) 11/14/17 23:22 Urine Glucose (UA) Negative (NEGATIVE) 11/14/17 23:22 Urine Ketones Negative (NEGATIVE) 11/14/17 23:22 Urine Blood Negative (NEGATIVE) 11/14/17 23:22 Urine Nitrite Negative (NEGATIVE) 11/14/17 23:22 Urine Bilirubin Negative (<2.0 mg/dL) 11/14/17 23:22 Urine Urobilinogen Negative mg/dL (0.2-1.0) 11/14/17 23:22 Ur Leukocyte Esterase 1+ (NEGATIVE) H D 11/14/17 23:22 Urine WBC (Auto) 2 /hpf (3-5) 11/14/17 23:22 Urine RBC (Auto) 1 /hpf (0-3) 11/14/17 23:22 Ur Epithelial Cells Many /HPF (FEW) 11/14/17 23:22 Urine Bacteria Rare /hpf (NONE SEEN) 11/14/17 23:22 Urine Mucus Few 11/14/17 23:22 RPR Titer Nonreactive (NONREACTIVE) 11/15/17 07:00 lab noted - Treatment Hospital Course: Detox Protocol Followed, Responded well Patient has Accepted a Rehab Referral to: [facility] - Medication Discharge Medications: Ambulatory Orders Paroxetine HCl [Paxil -] 40 mg PO DAILY #30 tablet 11/15/17 - Diagnosis (1) Nicotine dependence Status: Acute Qualifiers: Nicotine product type: cigarettes Substance use status: in withdrawal Qualified Code(s): F17.213 - Nicotine dependence, cigarettes, with withdrawal (2) Opioid dependence with withdrawal Status: Acute (3) Cannabis abuse, uncomplicated Status: Chronic (4) Cocaine abuse, uncomplicated Status: Chronic (5) Sedative, hypnotic or anxiolytic abuse, uncomplicated Status: Acute - AMA Did Patient Leave Against Medical Advice: Yes
[2017-11-18] MEDS ORDERED: diazePAM 5 MG TABLET PO SCH (10:00)
[2017-11-18] MEDS ORDERED: METHADONE HCL 10 MG TABLET (FOR DETOX USE ONLY) PO SCH (10:00)
[2017-11-19] MEDS ORDERED: METHADONE HCL 5 MG TABLET (FOR DETOX USE ONLY) PO SCH (06:00)
== END 2017-11-16 11:53 | disposition left against medical advice (07) | DRG 770 ==
LOC: YASAS 10:48 → Y6N 17:51
PROC: HZ2ZZZZ Detoxification Services for Substance Abuse Treatment (ICD-10-PCS; principal; 2017-11-14)
DX: F11.23 Opioid dependence with withdrawal (principal); F13.10 Sedative, hypnotic or anxiolytic abuse, uncomplicated; F14.10 Cocaine abuse, uncomplicated; F12.10 Cannabis abuse, uncomplicated; F17.213 Nicotine dependence, cigarettes, with withdrawal; F19.24 Other psychoactive substance dependence with psychoactive substance-induced mood disorder; F41.9 Anxiety disorder, unspecified; F32.9 Major depressive disorder, single episode, unspecified
CPT/HCPCS: 36415; 80053; 81003; 81015; 85027; 86593; 93005; 93010

== ENCOUNTER 2018-01-18 11:37 | Inpatient (IN) | payer OTHER ==
[2018-01-18 12:48] VITALS: BMI 25.2
--- NOTE | 2018-01-18 15:25 | HP ---
COWS - Scale Resting Pulse: 0= [place] 80 or Below Sweatin=Flushed/Facial Moisture Restless Observation: 1= Difficult to Sit Still Pupil Size: 2= Moderately Dilated Bone or Joint Aches: 2= Severe Diffuse Aches Runny Nose/ Eye Tearin= Nasal Congestion GI Upset > 30mins: 2= Nausea/Diarrhea Tremor Observation: 1= Tremor [place], Not Seen Yawning Observation: 0= None Anxiety or Irritability: 2=Irritable/Anxious Goose Flesh Skin: 0=Smooth Skin COWS Score: 13 CIWA Score - Admission Criteria OAS Guidelines: Admission for Medically Managed Detox: Requires at least one of the followin. CIWA greater than 12 2. Seizures within the past 24 hours 3. Delirium tremens within the past 24 hours 4. Hallucinations within the past 24 hours 5. Acute intervention needed for co occurring medical disorder 6. Acute intervention needed for co occurring psychiatric disorder 7. Severe withdrawal that cannot be handled at a lower level of care (continued vomiting, continued diarrhea, abnormal vital signs) requiring intravenous medication and/or fluids 8. Admission [facility] Chief Complaint: HEROIN WITHDRAWAL SYMPTOMS. Allergies/Adverse Reactions: Allergies Allergy/AdvReac Type Severity Reaction Status Date / Time No Known Allergies Allergy Verified 01/18/18 14:47 History of Present Illness: PATIENT PRESENTS FOR HEROIN WITHDRAWAL SYMPTOMS. PATIENT HAS HAD MULTIPLE ADMISSIONS FOR DETOX THIS YEAR AT [facility]. PATIENT STARTED SNIFFING HEROIN/COCAINE AT AGE 20. SNIFFS UP TO 20 BAGS DAILY. LAST TIME SHE USED WAS THIS MORNING. PATIENT ALSO SMOKES MARIJUANA AND TAKES NON-PRESCRIBED XANAX 4MG MONTHLY. LAST TIME SHE TOOK XANAX UNKNOWN. PATIENT DENIES HX OF SEIZURES, BLACKOUTS, OVERDOSE. PMH INCLUDES ANXIETY AND DEPRESSION. DENIES SI/HI AND SUICIDE ATTEMPTS. Exam Limitations: No Limitations - Ebola screening Have you traveled outside of the country in the last 21 days: No Have you had contact with anyone from an Ebola affected area: No Have you been sick,other than usual withdrawal symptoms: No Do you have a fever: No - Review of Systems Constitutional: Chills, Night Sweats, Changes in sleep EENT: reports: Nose Congestion Respiratory: reports: Cough Cardiac: reports: No Symptoms Reported GI: reports: Diarrhea (INTERMITTENT), Nausea, Poor Fluid Intake, Abdominal cramping : reports: No Symptoms Reported Musculoskeletal: reports: Back Pain, Muscle Pain Integumentary: reports: Flushing, Sweating Neuro: reports: Headache Endocrine: reports: No Symptoms Reported Hematology: reports: No Symptoms Reported Psychiatric: reports: Orientated x3, Anxious, Depressed Patient History - Patient Medical History Hx Anemia: No Hx Asthma: No Hx Chronic Obstructive Pulmonary Disease (COPD): No Hx Cancer: No Hx Cardiac Disorders: No Hx Congestive Heart Failure: No Hx Hypertension: No Hx Hypercholesterolemia: No Hx Pacemaker: No HX Cerebrovascular Accident: No Hx Seizures: No Hx Dementia: No Hx Diabetes: No Hx Gastrointestinal Disorders: No Hx Liver Disease: No Hx Genitourinary Disorders: No Hx Sexually Transmitted Disorders: No Hx Renal Disease (ESRD): No Hx Thyroid Disease: No Hx Human Immunodeficiency Virus (HIV): No (2018) Hx Hepatitis C: No Hx Depression: Yes Hx Suicide Attempt: No Hx Bipolar Disorder: No Hx Schizophrenia: No - Patient Surgical History Past Surgical History: No Hx Neurologic Surgery: No Hx Cataract Extraction: No Hx Cardiac Surgery: No Hx Lung Surgery: No Hx Breast Surgery: No Hx Breast Biopsy: No Hx Abdominal Surgery: No Hx Appendectomy: No Hx Cholecystectomy: No Hx Genitourinary Surgery: No Hx Section: No Hx Orthopedic Surgery: No Hx Hysterectomy: No Anesthesia Reaction: No - PPD History Previous Implant?: Yes Documented Results: Negative w/o proof Date: 07/01/17 PPD to be Administered?: No - Reproductive History Last Menstrual Period: 10/24/17 (Usually regular) Patient : No - Smoking Cessation Smoking history: Current every day smoker Have you smoked in the past 12 months: Yes Aproximately how many cigarettes per day: 20 Cigars Per Day: 0 Hx Chewing Tobacco Use: No Initiated information on smoking cessation: Yes 'Breaking Loose' booklet given: 01/18/18 - Substance & Tx. History Hx Alcohol Use: No Hx Substance Use: Yes Substance Use Type: Cocaine, Heroin, Marijuana, Tranquilizers Hx Substance Use Treatment: Yes - Substances Abused Heroin Route: Inhalation Frequency: Daily Amount used: 20 bags Age of first use: 20 Date of Last Use: 01/18/18 Marijuana Route: Smoking Frequency: 3-6 times per week Amount used: $10 Age of first use: 12 Date of Last Use: 01/18/18 Cocaine Route: Inhalation Frequency: Daily Amount used: VARIES Age of first use: 20 Date of Last Use: 01/18/18 Family Disease History - Family Disease History Family Disease History: Heart Disease: Father (), Other: Father, Mother (REMARRIED NO CONTACT, HEP C) Admission Physical Exam [facility] - Vital Signs Vital Signs: Vital Signs - 24 hr 01/18/18 12:46 Temperature 97.1 F L Pulse Rate 71 Respiratory 18 Rate Blood Pressure 134/93 - Physical General Appearance: Yes: Nourished, Appropriately Dressed, Tremorous, Sweating, Anxious HEENTM: Yes: EOMI, Hearing grossly Normal, Normocephalic, Normal Voice, NOLBERTO, Pharynx Normal, Nasal Congestion Respiratory: Yes: Chest Non-Tender, Lungs Clear, Normal Breath Sounds, No Respiratory Distress, No Accessory Muscle Use Neck: Yes: No masses,lesions,Nodules, Supple, Trachea in good position Breast: Yes: Breast Exam Deferred Cardiology: Yes: Regular Rhythm, Regular Rate, S1, S2 Abdominal: Yes: Normal Bowel Sounds, Non Tender, Soft Genitourinary: Yes: Within Normal Limits Back: Yes: Normal Inspection, Muscle Spasm Musculoskeletal: Yes: full range of Motion, Gait Steady, Back pain, Muscle Pain Extremities: Yes: Normal Inspection, Normal Range of Motion, Non-Tender, Tremors 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, Fully Oriented, Alert, Motor Strength 5/5, Depressed Affect Integumentary: Yes: Normal Color, Warm, Moist - Diagnostic (1) Nicotine dependence Current Visit: Yes Status: Chronic Qualifiers: Nicotine product type: cigarettes Substance use status: in withdrawal Qualified Code(s): F17.213 - Nicotine dependence, cigarettes, with withdrawal (2) Opioid dependence with withdrawal Current Visit: Yes Status: Acute (3) Sedative, hypnotic or anxiolytic abuse, uncomplicated Current Visit: Yes Status: Chronic (4) Cannabis abuse, uncomplicated Current Visit: Yes Status: Chronic (5) Cocaine abuse, uncomplicated Current Visit: Yes Status: Chronic (6) Anxiety Current Visit: Yes Status: Chronic Cleared for Admission [facility] - Detox or Rehab [facility] Level of Care: Medically Managed Detox Regimen/Protocol: Methadone [facility] Breath Alcohol Content Breath Alcohol Content: 0 Urine Pregancy Test - Result Urine Test Results: Negative- NO Line Present Urine Drug Screen - Results Drug Screen Negative: No Urine Drug Screen Results: THC-Marijuana, PARMINDER-Cocaine, OPI-Opiates, AMP- Amphetamines, BZO-Benzodiazepines, FEN-Fentanyl
[2018-01-18] MEDS ORDERED: NICOTINE POLACRILEX 2 MG GUM BC PRN (15:38)
[2018-01-18] MEDS ORDERED: ACETAMINOPHEN 325 MG TABLET (FP) PO PRN (15:38)
[2018-01-18] MEDS ORDERED: MAGNESIUM CITRATE 300 ML BOTTLE PO PRN (15:38)
[2018-01-18] MEDS ORDERED: MENTHOL/PHENOL 1 EACH UD MM PRN (15:38)
[2018-01-18] MEDS ORDERED: MAGNESIUM HYDROX 2400MG/30ML ORAL SUSPENSION 30 ML CUP PO PRN (15:38)
[2018-01-18] MEDS ORDERED: hydrOXYzine PAMOATE 50 MG CAPSULE (FP) PO PRN (15:38)
[2018-01-18] MEDS ORDERED: LOPERAMIDE HCL 2 MG CAPSULE PO PRN (15:38)
[2018-01-18] MEDS ORDERED: P-EPHED 60MG/TRIPROLIDI 2.5MG TABLET PO PRN (15:38)
[2018-01-18] MEDS ORDERED: MAG HYDROX/AL HYDROX/SIMETH 30 ML UNIT-DOSE CUP PO PRN (15:38)
[2018-01-18] MEDS ORDERED: guaiFENesin/D-METHORPHAN HB 10 ML UNIT-DOSE CUPS PO PRN (15:38)
[2018-01-18] MEDS ORDERED: IBUPROFEN 400 MG TABLET (FP) PO PRN (15:38)
[2018-01-18] MEDS ORDERED: METHADONE HCL 10 MG TABLET (FOR DETOX USE ONLY) PO ONE ×3 (15:40→23:00)
--- NOTE | 2018-01-18 15:58 | PN ---
S Progress Note Note: WHILE WALKING INTO ADMITTING AREA FROM OUTSIDE, PATIENT SLIPPED AND FELL OUT BUTTOCKS (RIGHT SIDE). PATIENT DID NOT HIT HEAD ON FLOOR/WALL/OBJECTS/ FURNITURE. PATIENT DENIES PAIN TO BUTTOCKS, LEGS. PATIENT ALERT AND ORIENTED X 3 , +PERRLA B/L, SKIN WARM AND DRY, CAR S1S2, RESP CTA BL, EXT FULL ROM, NO REDNESS OR SWELLING. AMB AD HERBERT. NEURO: CN 1-X11 GROSSLY INTACT. A/P: T 96.5 P 70 BP 134/96 TEMP 96.5 A/P S/P FALL FALL PROTOCOL #2 CONTINUE TO MONITOR CLINICALLY
--- NOTE | 2018-01-18 16:12 | CONSULT ---
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 Substance Abuse History: Smoking history: Current every day smoker. Have you smoked in the past 12 months: Yes. Aproximately how many cigarettes per day: 20. Cigars Per Day: 0. Hx Chewing Tobacco Use: No. Initiated information on smoking cessation: Yes. 'Breaking Loose' booklet given: 01/18/18. - Substance & Tx. History. Hx Alcohol Use: No. Hx Substance Use: Yes. Substance Use Type : Cocaine, Heroin, Marijuana, Tranquilizers. Hx Substance Use Treatment: Yes. - Substances Abused. Heroin. Route: Inhalation. Frequency: Daily. Amount used: 20 bags. Age of first use: 20. Date of Last Use: 01/18/18. Marijuana. Route: Smoking. Frequency: 3-6 times per week. Amount used: $10. Age of first use: 12. Date of Last Use: 01/18/18. Cocaine. Route: Inhalation. Frequency: Daily. Amount used: VARIES. Age of first use: 20. Date of Last Use: 01/18/18 Medical History: Denies significant medical issues Psychiatric History: Patient reports history of anxiety and depression, reports most recent psychiatoric admission on 3 years ago at [facility] for safety, reports no medications taking prior to admission. Patient denies suicidal, homicidal history. Physical/Sexual Abuse/Trauma History: Denies Additional Comment: Observation. Detox Unit Care Protocol Mental Status Exam - Mental Status Exam Alert and Oriented to: Person Cognitive Function: Fair Patient Appearance: Well Groomed Mood: Anxious Affect: Mood Congruent Patient Behavior: Cooperative Speech Pattern: Appropriate Voice Loudness: Normal Thought Process: Goal Oriented Thought Disorder: Being Controlled Hallucinations: Denies Suicidal Ideation: Denies Homicidal Ideation: Denies Insight/Judgement: Fair Sleep: Difficulty falling asleep Appetite: Fair Muscle strength/Tone: Normal Gait/Station: Normal Additional Comments: Observation. Detox Unit Care Protocol Psychiatric Findings - Problem List ([place] 1, 2,3) (1) Opioid dependence with withdrawal Current Visit: Yes Status: Acute (2) Anxiety Current Visit: Yes Status: Chronic (3) Cannabis abuse, uncomplicated Current Visit: Yes Status: Chronic (4) Cocaine abuse, uncomplicated Current Visit: Yes Status: Chronic (5) Nicotine dependence Current Visit: Yes Status: Chronic Qualifiers: Nicotine product type: cigarettes Substance use status: in withdrawal Qualified Code(s): F17.213 - Nicotine dependence, cigarettes, with withdrawal (6) Sedative, hypnotic or anxiolytic abuse, uncomplicated Current Visit: Yes Status: Chronic (7) Substance induced mood disorder Current Visit: No Status: Suspected - Initial Treatment Plan Initial Treatment Plan: Observation. Detox Unit Care Protocol
[2018-01-18] MEDS: diazePAM 5 MG TABLET PO PRN (19:53)
[2018-01-18] MEDS ORDERED: THIAMINE HCL 100 MG TABLET (FP) PO SCH (22:00)
[2018-01-18] MEDS ORDERED: MELATONIN 5 MG TABLETS PO PRN (22:00)
[2018-01-18 22:13] LABS: URINE APPEARANCE SLCLOUDY; URINE BILIRUBIN NEGATIVE (<2.0 mg/dL); URINE COLOR YELLOW; URINE GLUCOSE (UA) NEGATIVE (NEGATIVE); URINE KETONE NEGATIVE (NEGATIVE); URINE LEUK ESTERASE 2+ (NEGATIVE); URINE NITRITE NEGATIVE (NEGATIVE); URINE PROTEIN NEGATIVE (NEGATIVE); URINE UROBILINOGEN NEGATIVE mg/dL (0.2-1.0)
[2018-01-18 22:22] LABS: EPI CELLS MODERATE /HPF (FEW); URINE MUCUS FEW
[2018-01-19] MEDS ORDERED: NICOTINE 21 MG/24 HOURS TOPICAL PATCH TD SCH (10:00)
[2018-01-19] MEDS ORDERED: PRENATAL VITAMINS W/ FOLIC ACID TABLET (FP) PO SCH (10:00)
[2018-01-19] MEDS ORDERED: METHADONE HCL 10 MG TABLET (FOR DETOX USE ONLY) PO ONE (10:00)
[2018-01-19 10:05] LABS: HEMATOCRIT 40.3 % (32.4-45.2); HEMOGLOBIN 13.1 GM/dL (10.7-15.3); MCH 29.9 pg (25.7-33.7); MCHC 32.4 g/dl (32.0-36.0); MEAN CELL VOLUME 92.4 fl (80-96); MEAN PLT VOLUME 8.8 fl (7.5-11.1); PLATELET COUNT 246 K/MM3 (134-434); RBC 4.37 M/mm3 (3.60-5.2); WHITE BLOOD COUNT 12.2 K/mm3 (4.0-10.0)
[2018-01-19] MEDS: diazePAM 5 MG TABLET PO PRN ×3 (10:35→21:13)
[2018-01-19 10:41] LABS: ALBUMIN 3.3 g/dl (3.4-5.0); ALK PHOS 71 U/L (45-117); ANION GAP 6 MMOL/L (8-16); BILIRUBIN,TOTAL 0.2 mg/dL (0.2-1); BLOOD UREA NITROGEN 15 mg/dL (7-18); CALCIUM 8.3 mg/dL (8.5-10.1); CHLORIDE 106 mmol/L (98-107); CO2 29 mmol/L (21-32); CREATININE 0.7 mg/dL (0.55-1.3); GLUCOSE,RANDOM 87 mg/dL (74-106); POTASSIUM 4.2 mmol/L (3.5-5.1); SGOT/AST 55 U/L (15-37); SGPT/ALT 68 U/L (13-61); SODIUM 141 mmol/L (136-145); TOT PROT 5.7 g/dl (6.4-8.2)
--- NOTE | 2018-01-19 12:01 | PN ---
[facility] COWS - Scale Resting Pulse: 0= [place] 80 or Below Sweatin=Flushed/Facial Moisture Restless Observation: 1= Difficult to Sit Still Pupil Size: 0= Normal to Room Light Bone or Joint Aches: 2= Severe Diffuse Aches Runny Nose/ Eye Tearin= Runny Nose/Eyes GI Upset > 30mins: 2= Nausea/Diarrhea Tremor Observation of Outstretched Hands: 2= Slight Tremor Visible Yawning Observation: 2= >3x During Session Anxiety or Irritability: 2=Irritable/Anxious Goose Flesh Skin: 0=Smooth Skin COWS Score: 15 [facility] Progress Note (SOAP) Subjective: sweats shakes body aches interrupted sleep irritable chills restless Objective: 01/19/18 12:00 Vital Signs Temperature 97.9 F 01/19/18 09:42 Pulse Rate 67 01/19/18 09:42 Respiratory Rate 16 01/19/18 09:42 Blood Pressure 113/68 01/19/18 09:42 O2 Sat by Pulse Oximetry (%) Laboratory Tests 01/18/18 01/19/18 01/19/18 20:40 07:00 07:00 WBC 12.2 H RBC 4.37 Hgb 13.1 Hct 40.3 MCV 92.4 MCH 29.9 MCHC 32.4 RDW 13.0 Plt Count 246 MPV 8.8 Sodium 141 Potassium 4.2 Chloride 106 Carbon Dioxide 29 Anion Gap 6 L BUN 15 Creatinine 0.7 Creat Clearance w eGFR > 60 Random Glucose 87 Calcium 8.3 L Total Bilirubin 0.2 AST 55 H ALT 68 H Alkaline Phosphatase 71 Total Protein 5.7 L Albumin 3.3 L Urine Color Yellow Urine Appearance Slcloudy Urine pH 6.0 Ur Specific [place] 1.031 Urine Protein Negative Urine Glucose (UA) Negative Urine Ketones Negative Urine Blood Negative Urine Nitrite Negative Urine Bilirubin Negative Urine Urobilinogen Negative Ur Leukocyte Esterase 2+ H Urine WBC (Auto) 15 Urine RBC (Auto) None Ur Epithelial Cells Moderate Urine Mucus Few aaox3 ambulating no acute distress Assessment: 01/19/18 12:01 withdrawal sx Plan: continue detox increase fluids
[2018-01-19 21:35] VITALS: BP 127/98; PULSE 60; TEMP 97.5
--- NOTE | 2018-01-20 01:40 | PN ---
[facility] Progress Note Note: Spoke with patient earlier to have patient avoid signing out AMA. Patient alert and oriented. Asked if having uncontrolled withdrawal and the need for possible dose adjustment and stated she was fine. Patient stated that she had to go to work and then stated "I just want to relax at home". Discussed strong possibility of relapse and for potential; overdose. Patient states "I'll be fine. I won't overdose'. Patient insists on leaving AMA. Vital Signs - 24 hr 01/19/18 01/19/18 01/19/18 03:30 09:10 09:42 Temperature 98.4 F 97.9 F Pulse Rate 71 67 Respiratory 18 18 16 Rate Blood Pressure 126/83 113/68 01/19/18 01/19/18 01/19/18 13:58 16:36 21:34 Temperature 98.2 F 97.7 F 97.5 F L Pulse Rate 67 67 60 Respiratory 18 18 18 Rate Blood Pressure 118/75 102/50 L 127/98
--- NOTE | 2018-01-20 01:46 | DS ---
[facility] Detox Discharge Summary Admission Date: 01/18/18 Discharge Date: 01/19/18 - History Present History: Alcohol Dependence, Cannabis Dependence, Cocaine Dependence, Opioid Dependence Additional Comments: Patient admitted with alcohol withdrawal symptoms. Pertinent Past History: Patient w/ a history of heroin use disorder w/ co-occurring cocaine and marijuana and intermittent benzo use. Admitted for heroin detox. - Physical Exam Results Vital Signs: Vital Signs Temperature 97.5 F L 01/19/18 21:34 Pulse Rate 60 01/19/18 21:34 Respiratory Rate 18 01/19/18 21:34 Blood Pressure 127/98 01/19/18 21:34 O2 Sat by Pulse Oximetry (%) Pertinent Admission Physical Exam Findings: Patient w/ a history of heroin use disorder admitted with acute withdrawal symptoms. Admitted for supportive detox. Lab Results WBC 12.2 K/mm3 (4.0-10.0) H 01/19/18 07:00 RBC 4.37 M/mm3 (3.60-5.2) 01/19/18 07:00 Hgb 13.1 GM/dL (10.7-15.3) 01/19/18 07:00 Hct 40.3 % (32.4-45.2) 01/19/18 07:00 MCV 92.4 fl (80-96) 01/19/18 07:00 MCHC 32.4 g/dl (32.0-36.0) 01/19/18 07:00 RDW 13.0 % (11.6-15.6) 01/19/18 07:00 Plt Count 246 K/MM3 (134-434) 01/19/18 07:00 Sodium 141 mmol/L (136-145) 01/19/18 07:00 Potassium 4.2 mmol/L (3.5-5.1) 01/19/18 07:00 Chloride 106 mmol/L (98-107) 01/19/18 07:00 Carbon Dioxide 29 mmol/L (21-32) 01/19/18 07:00 Anion Gap 6 MMOL/L (8-16) L 01/19/18 07:00 BUN 15 mg/dL (7-18) 01/19/18 07:00 Creatinine 0.7 mg/dL (0.55-1.3) 01/19/18 07:00 Random Glucose 87 mg/dL (74-106) 01/19/18 07:00 Calcium 8.3 mg/dL (8.5-10.1) L 01/19/18 07:00 Labs reviewed. - Treatment Hospital Course: Detox Protocol Followed (Did not complete detox), Discharged Condition Good (Alert and oriented upon discharge w/ steady gait.) - Medication Discharge Medications: Ambulatory Orders NK [No Known Home Medication] 01/18/18 - Diagnosis (1) Cannabis abuse, uncomplicated Status: Chronic (2) Cocaine abuse, uncomplicated Status: Chronic (3) Nicotine dependence Status: Chronic Qualifiers: Nicotine product type: cigarettes Substance use status: uncomplicated Qualified Code(s): F17.210 - Nicotine dependence, cigarettes, uncomplicated (4) Opioid dependence with withdrawal Status: Acute (5) Sedative, hypnotic or anxiolytic abuse, uncomplicated Status: Chronic - AMA Did Patient Leave Against Medical Advice: Yes
[2018-01-20] MEDS ORDERED: METHADONE HCL 5 MG TABLET (FOR DETOX USE ONLY) PO ONE (10:00)
[2018-01-21] MEDS ORDERED: METHADONE HCL 5 MG TABLET (FOR DETOX USE ONLY) PO ONE (10:00)
[2018-01-22] MEDS ORDERED: METHADONE HCL 10 MG TABLET (FOR DETOX USE ONLY) PO ONE (10:00)
[2018-01-23] MEDS ORDERED: METHADONE HCL 5 MG TABLET (FOR DETOX USE ONLY) PO ONE (06:00)
== END 2018-01-19 22:00 | disposition left against medical advice (07) | DRG 770 ==
LOC: YASAS 11:37 → Y6N 16:01
PROC: HZ2ZZZZ Detoxification Services for Substance Abuse Treatment (ICD-10-PCS; principal; 2018-01-18)
DX: F11.23 Opioid dependence with withdrawal (principal); F13.10 Sedative, hypnotic or anxiolytic abuse, uncomplicated; F14.10 Cocaine abuse, uncomplicated; F12.10 Cannabis abuse, uncomplicated; F17.210 Nicotine dependence, cigarettes, uncomplicated; F19.24 Other psychoactive substance dependence with psychoactive substance-induced mood disorder; F41.9 Anxiety disorder, unspecified; F32.9 Major depressive disorder, single episode, unspecified; G47.00 Insomnia, unspecified; Z82.41 Family history of sudden cardiac death
CPT/HCPCS: 36415; 80053; 81003; 81015; 85027; 86593

== ENCOUNTER 2018-02-15 18:04 | Inpatient (IN) | payer OTHER ==
[2018-02-15 18:34] VITALS: BMI 24.7
--- NOTE | 2018-02-15 18:59 | HP ---
COWS - Scale Resting Pulse: 1= [place] 81-100 Sweatin= Chills/Flushing Restless Observation: 5= Unable to Sit Still Pupil Size: 1= Pupils >than Normal Bone or Joint Aches: 1= Mild Discomfort Runny Nose/ Eye Tearin= Runny Nose/Eyes GI Upset > 30mins: 0= None Tremor Observation: 1= Tremor [place], Not Seen Yawning Observation: 0= None Anxiety or Irritability: 2=Irritable/Anxious Goose Flesh Skin: 0=Smooth Skin COWS Score: 14 CIWA Score - Admission Criteria OASAS Guidelines: Admission for Medically Managed Detox: Requires at least one of the followin. CIWA greater than 12 2. Seizures within the past 24 hours 3. Delirium tremens within the past 24 hours 4. Hallucinations within the past 24 hours 5. Acute intervention needed for co occurring medical disorder 6. Acute intervention needed for co occurring psychiatric disorder 7. Severe withdrawal that cannot be handled at a lower level of care (continued vomiting, continued diarrhea, abnormal vital signs) requiring intravenous medication and/or fluids 8. Admission ROS [facility] Chief Complaint: c/o withdrawal sx's. seeking detox txment for opioid dep Allergies/Adverse Reactions: Allergies Allergy/AdvReac Type Severity Reaction Status Date / Time No Known Allergies Allergy Verified 01/18/18 14:47 History of Present Illness: 22 Y.O. FEMALE WITH HX/O OPIOID DEPENDENCE HERE FOR DETOX TXMENT. CLIENT IS KNOWN TO THIS PROGRAM. LAST HERE 01/19/2018 WHERE SIOLIVIA SIGNED OUT AFTER 2 DAYS. THIS IS CLIENT 4 ADMISSION AND HAS SIGNED OUT 3 PREVIOUS TIMES. D/W CLIENT ABOUT COMPLIANCE AND ADHERENCE. CLIENT ASKING FOR ANOTHER CHANCE. STATES SHE IS SERIOUS THIS TIME ABOUT HER TXMENT. SELF REFERRED. WITH C/O WITHDRAWAL SX 'S COWS 12. RDENIES ANY SIGNIFICANT PERIOD OF CLEAN TIME. DENIES SI/HI, AVH, SEIZURE D/O, DRUG OVERDOSE. PMHX- DENIES PSYCH- MICKEY MEDS- NONE Exam Limitations: No Limitations - Ebola screening Have you traveled outside of the country in the last 21 days: No (N) Have you had contact with anyone from an Ebola affected area: No Have you been sick,other than usual withdrawal symptoms: No Do you have a fever: No - Review of Systems Constitutional: Chills, Loss of Appetite, Malaise, Changes in sleep EENT: reports: Nose Congestion, Other (RINORRHEA RX LENSES) Respiratory: reports: No Symptoms reported Cardiac: reports: No Symptoms Reported GI: reports: Poor Appetite, Poor Fluid Intake, Abdominal cramping (FROM MENSES) : reports: No Symptoms Reported Musculoskeletal: reports: No Symptoms Reported Integumentary: reports: Rash (AT CORNERS OF MOUTH) Neuro: reports: No Symptoms reported Endocrine: reports: No Symptoms Reported Hematology: reports: No Symptoms Reported Psychiatric: reports: Anxious Other Systems: Reviewed and Negative Patient History - Patient Medical History Hx Anemia: No Hx Asthma: No Hx Chronic Obstructive Pulmonary Disease (COPD): No Hx Cancer: No Hx Cardiac Disorders: No Hx Congestive Heart Failure: No Hx Hypertension: No Hx Hypercholesterolemia: No Hx Pacemaker: No HX Cerebrovascular Accident: No Hx Seizures: No Hx Dementia: No Hx Diabetes: No Hx Gastrointestinal Disorders: No Hx Liver Disease: No Hx Genitourinary Disorders: No Hx Sexually Transmitted Disorders: No Hx Renal Disease (ESRD): No Hx Thyroid Disease: No Hx Human Immunodeficiency Virus (HIV): No Hx Hepatitis C: No Hx Depression: No Hx Suicide Attempt: No Hx Bipolar Disorder: No Hx Schizophrenia: No Other Medical History: MICKEY - Patient Surgical History Past Surgical History: No Hx Neurologic Surgery: No Hx Cataract Extraction: No Hx Cardiac Surgery: No Hx Lung Surgery: No Hx Breast Surgery: No Hx Breast Biopsy: No Hx Abdominal Surgery: No Hx Appendectomy: No Hx Cholecystectomy: No Hx Genitourinary Surgery: No Hx Section: No Hx Orthopedic Surgery: No Hx Hysterectomy: No Anesthesia Reaction: No - PPD History Previous Implant?: Yes Documented Results: Negative w/o proof Implanted On Prior [facility] Admission?: Yes Date: 01/20/18 Results: AMA PPD to be Administered?: Yes - Reproductive History Patient is a Female of Child Bearing Age (11 -55 yrs old): Yes Last Menstrual Period: 02/13/18 LMP comment: REG Patient : No (NEG UHCG) - Smoking Cessation Smoking history: Current every day smoker Have you smoked in the past 12 months: Yes Aproximately how many cigarettes per day: 20 Cigars Per Day: 0 Hx Chewing Tobacco Use: No Initiated information on smoking cessation: Yes 'Breaking Loose' booklet given: 02/15/18 - Substance & Tx. History Hx Alcohol Use: No Hx Substance Use: Yes Substance Use Type: Cocaine, Heroin, Marijuana Hx Substance Use Treatment: Yes ([facility]) - Substances Abused Heroin Route: Inhalation Frequency: Daily Amount used: 15 bags Age of first use: 21 Date of Last Use: 02/14/18 Family Disease History - Family Disease History Family Disease History: Heart Disease: Father (), Other: Father, Mother (REMARRIED NO CONTACT, HEP C) Admission Physical Exam [facility] - Vital Signs Vital Signs: Vital Signs - 24 hr 02/15/18 18:31 Temperature 97.8 F Pulse Rate 84 Respiratory 18 Rate Blood Pressure 121/72 - Physical General Appearance: Yes: Appropriately Dressed, Tremorous (FELT), Sweating, Anxious HEENTM: Yes: EOMI, Normocephalic, Normal Voice, NOLBERTO, Pharynx Normal, Other ( CHEILITIS OF CORNERS OF MOUTH) Respiratory: Yes: Chest Non-Tender, Normal Breath Sounds, No Respiratory Distress, No Accessory Muscle Use Neck: Yes: No masses,lesions,Nodules, Supple, Trachea in good position Breast: Yes: Breast Exam Deferred Cardiology: Yes: Regular Rhythm, Regular Rate, S1, S2 Abdominal: Yes: Non Tender, Flat, Soft, Increased Bowel Sounds Genitourinary: Yes: Within Normal Limits (NO C/O) Back: Yes: Normal Inspection Musculoskeletal: Yes: full range of Motion, Gait Steady Extremities: Yes: Normal Capillary Refill, Normal Range of Motion, Non-Tender, Tremors (FELT) Neurological: Yes: Fully Oriented, Alert, Motor Strength 5/5 Integumentary: Yes: Warm, Moist Lymphatic: Yes: Within Normal Limits - Diagnostic (1) Angular cheilitis Current Visit: Yes Status: Acute (2) Opioid dependence with withdrawal Current Visit: Yes Status: Acute (3) Anxiety Current Visit: Yes Status: Chronic (4) Cannabis abuse, uncomplicated Current Visit: Yes Status: Chronic (5) Cocaine abuse, uncomplicated Current Visit: Yes Status: Chronic (6) Nicotine dependence Current Visit: Yes Status: Chronic Qualifiers: Nicotine product type: cigarettes Substance use status: uncomplicated Qualified Code(s): F17.210 - Nicotine dependence, cigarettes, uncomplicated (7) Substance induced mood disorder Current Visit: Yes Status: Suspected Cleared for Admission [facility] - Detox or Rehab [facility] Level of Care: Medically Supervised Detox Regimen/Protocol: Methadone Claeared for Rehab Admission: No BHS Breath Alcohol Content Breath Alcohol Content: 0 Urine Pregancy Test - Result Urine Test Results: Negative- NO Line Present Urine Drug Screen - Results Drug Screen Negative: No Urine Drug Screen Results: THC-Marijuana, OPI-Opiates, BZO-Benzodiazepines, FEN- Fentanyl
[2018-02-15] MEDS ORDERED: guaiFENesin/D-METHORPHAN HB 10 ML UNIT-DOSE CUPS PO PRN (19:17)
[2018-02-15] MEDS ORDERED: MAGNESIUM CITRATE 300 ML BOTTLE PO PRN (19:17)
[2018-02-15] MEDS ORDERED: METHADONE HCL 10 MG TABLET (FOR DETOX USE ONLY) PO ONE ×2 (19:17→23:00)
[2018-02-15] MEDS ORDERED: P-EPHED 60MG/TRIPROLIDI 2.5MG TABLET PO PRN (19:17)
[2018-02-15] MEDS ORDERED: LOPERAMIDE HCL 2 MG CAPSULE PO PRN (19:17)
[2018-02-15] MEDS ORDERED: MAG HYDROX/AL HYDROX/SIMETH 30 ML UNIT-DOSE CUP PO PRN (19:17)
[2018-02-15] MEDS ORDERED: NICOTINE POLACRILEX 2 MG GUM BC PRN (19:17)
[2018-02-15] MEDS ORDERED: IBUPROFEN 400 MG TABLET (FP) PO PRN (19:17)
[2018-02-15] MEDS ORDERED: ACETAMINOPHEN 325 MG TABLET (FP) PO PRN (19:17)
[2018-02-15] MEDS ORDERED: MENTHOL/PHENOL 1 EACH UD MM PRN (19:17)
[2018-02-15] MEDS ORDERED: MAGNESIUM HYDROX 2400MG/30ML ORAL SUSPENSION 30 ML CUP PO PRN (19:17)
[2018-02-15] MEDS ORDERED: hydrOXYzine PAMOATE 50 MG CAPSULE (FP) PO PRN (19:17)
[2018-02-15] MEDS: diazePAM 5 MG TABLET PO PRN (20:11)
[2018-02-15] MEDS ORDERED: THIAMINE HCL 100 MG TABLET (FP) PO SCH (22:00)
[2018-02-15] MEDS ORDERED: MELATONIN 5 MG TABLETS PO PRN (22:00)
[2018-02-15] MEDS: NYSTATIN/TRIAMCINOLONE TOPICAL CREAM 15 GM TUBE TP SCH (22:26)
[2018-02-16] MEDS: diazePAM 5 MG TABLET PO PRN ×2 (04:16→09:04)
[2018-02-16 09:45] VITALS: PULSE 69
[2018-02-16] MEDS ORDERED: METHADONE HCL 10 MG TABLET (FOR DETOX USE ONLY) PO ONE (10:00)
[2018-02-16] MEDS ORDERED: NICOTINE 21 MG/24 HOURS TOPICAL PATCH TD SCH (10:00)
[2018-02-16] MEDS ORDERED: PRENATAL VITAMINS W/ FOLIC ACID TABLET (FP) PO SCH (10:00)
[2018-02-16] MEDS: NYSTATIN/TRIAMCINOLONE TOPICAL CREAM 15 GM TUBE TP SCH (10:18)
--- NOTE | 2018-02-16 10:20 | PN ---
BHS COWS - Scale Resting Pulse: 0= [place] 80 or Below Sweatin=Flushed/Facial Moisture Restless Observation: 1= Difficult to Sit Still Pupil Size: 0= Normal to Room Light Bone or Joint Aches: 2= Severe Diffuse Aches Runny Nose/ Eye Tearin= Runny Nose/Eyes GI Upset > 30mins: 0= None Tremor Observation of Outstretched Hands: 2= Slight Tremor Visible Yawning Observation: 2= >3x During Session Anxiety or Irritability: 2=Irritable/Anxious Goose Flesh Skin: 0=Smooth Skin COWS Score: 13 BHS Progress Note (SOAP) Subjective: anxiety sweats irritable interrupted sleep body aches Objective: 02/16/18 10:19 Vital Signs Temperature 97.7 F 02/16/18 09:44 Pulse Rate 69 02/16/18 09:44 Respiratory Rate 20 02/16/18 09:44 Blood Pressure 92/62 02/16/18 09:44 O2 Sat by Pulse Oximetry (%) labs pending aaox3 ambulating no acute distress Assessment: 02/16/18 10:20 withdrawal sx Plan: continue detox increase fluids labs pending
[2018-02-16 10:30] LABS: HEMOGLOBIN 12.4 GM/dL (10.7-15.3); MCH 30.1 pg (25.7-33.7); MCHC 32.7 g/dl (32.0-36.0); MEAN CELL VOLUME 91.9 fl (80-96); MEAN PLT VOLUME 8.7 fl (7.5-11.1); PLATELET COUNT 265 K/MM3 (134-434); RBC 4.14 M/mm3 (3.60-5.2); RDW 12.9 % (11.6-15.6); WHITE BLOOD COUNT 5.9 K/mm3 (4.0-10.0)
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
[2018-02-16 11:09] LABS: ALBUMIN 3.7 g/dl (3.4-5.0); ALK PHOS 85 U/L (45-117); ANION GAP 4 MMOL/L (8-16); BILIRUBIN,TOTAL 0.3 mg/dL (0.2-1); BLOOD UREA NITROGEN 12 mg/dL (7-18); CALCIUM 8.8 mg/dL (8.5-10.1); CHLORIDE 106 mmol/L (98-107); CO2 30 mmol/L (21-32); CREATININE 0.7 mg/dL (0.55-1.3); GLUCOSE,RANDOM 79 mg/dL (74-106); POTASSIUM 4.4 mmol/L (3.5-5.1); SGOT/AST 45 U/L (15-37); SGPT/ALT 69 U/L (13-61); SODIUM 141 mmol/L (136-145); TOT PROT 6.2 g/dl (6.4-8.2)
[2018-02-16 14:52] VITALS: BP 106/70; TEMP 97.9
--- NOTE | 2018-02-16 17:45 | PN ---
S Progress Note Note: INFORMED CLIENT SIGNED OUT AMA. CLIENT HAD ALREADY LEFT THE UNIT WHEN THE PROVIDER ARRIVED.
--- NOTE | 2018-02-16 17:47 | DS ---
[facility] Detox Discharge Summary Admission Date: 02/15/18 Discharge Date: 02/16/18 - History Present History: Cannabis Dependence, Cocaine Dependence, Opioid Dependence Pertinent Past History: NICOTINE DEP ANGUALAR CHEILITIS ANXIETY - Physical Exam Results Vital Signs: Vital Signs Temperature 97.9 F 02/16/18 14:52 Pulse Rate 69 02/16/18 14:52 Respiratory Rate 18 02/16/18 14:52 Blood Pressure 106/70 02/16/18 14:52 O2 Sat by Pulse Oximetry (%) Pertinent Admission Physical Exam Findings: WITHDRAWAL SX'S - Treatment Hospital Course: Discharged Condition Good - Medication Discharge Medications: Ambulatory Orders NK [No Known Home Medication] 01/18/18 - Diagnosis (1) Angular cheilitis Status: Acute (2) Opioid dependence with withdrawal Status: Acute (3) Anxiety Status: Chronic (4) Cannabis abuse, uncomplicated Status: Chronic (5) Cocaine abuse, uncomplicated Status: Chronic (6) Nicotine dependence Status: Chronic Qualifiers: Nicotine product type: cigarettes Substance use status: uncomplicated Qualified Code(s): F17.210 - Nicotine dependence, cigarettes, uncomplicated (7) Substance induced mood disorder Status: Acute - AMA Did Patient Leave Against Medical Advice: Yes
[2018-02-17] MEDS ORDERED: METHADONE HCL 5 MG TABLET (FOR DETOX USE ONLY) PO ONE (10:00)
[2018-02-18] MEDS ORDERED: METHADONE HCL 5 MG TABLET (FOR DETOX USE ONLY) PO ONE (10:00)
[2018-02-19] MEDS ORDERED: METHADONE HCL 10 MG TABLET (FOR DETOX USE ONLY) PO ONE (10:00)
[2018-02-20] MEDS ORDERED: METHADONE HCL 5 MG TABLET (FOR DETOX USE ONLY) PO ONE (06:00)
== END 2018-02-16 17:18 | disposition left against medical advice (07) | DRG 770 ==
LOC: YASAS 18:04 → Y6N 19:04
PROC: HZ2ZZZZ Detoxification Services for Substance Abuse Treatment (ICD-10-PCS; principal; 2018-02-15)
DX: F11.23 Opioid dependence with withdrawal (principal); F13.230 Sedative, hypnotic or anxiolytic dependence with withdrawal, uncomplicated; F14.10 Cocaine abuse, uncomplicated; F12.10 Cannabis abuse, uncomplicated; F17.210 Nicotine dependence, cigarettes, uncomplicated; F41.9 Anxiety disorder, unspecified; F19.24 Other psychoactive substance dependence with psychoactive substance-induced mood disorder; K13.0 Diseases of lips; G47.00 Insomnia, unspecified; Z82.41 Family history of sudden cardiac death
CPT/HCPCS: 36415; 80053; 85027; 86593

== ENCOUNTER 2019-01-15 20:35 | Inpatient (IN) | payer OTHER ==
[2019-01-16 02:57] VITALS: BMI 25.6
--- NOTE | 2019-01-16 03:13 | HP ---
COWS - Scale Resting Pulse: 0= [place] 80 or Below Sweatin=Flushed/Facial Moisture Restless Observation: 0= Sits Still Pupil Size: 2= Moderately Dilated Bone or Joint Aches: 4=Acute Joint/Muscle Pain Runny Nose/ Eye Tearin= Runny Nose/Eyes GI Upset > 30mins: 3= Vomiting/Diarrhea (vomiting x 3) Tremor Observation: 4= Gross Tremor/Twitching Yawning Observation: 1= 1-2x During Session Anxiety or Irritability: 2=Irritable/Anxious Goose Flesh Skin: 0=Smooth Skin COWS Score: 20 CIWA Score - Admission Criteria OASAS Guidelines: Admission for Medically Managed Detox: Requires at least one of the followin. CIWA greater than 12 2. Seizures within the past 24 hours 3. Delirium tremens within the past 24 hours 4. Hallucinations within the past 24 hours 5. Acute intervention needed for co occurring medical disorder 6. Acute intervention needed for co occurring psychiatric disorder 7. Severe withdrawal that cannot be handled at a lower level of care (continued vomiting, continued diarrhea, abnormal vital signs) requiring intravenous medication and/or fluids 8. Admitting History and Physical - Past Medical History ...LMP: 02/13/18 - Smoking History Smoking history: Current every day smoker Have you smoked in the past 12 months: Yes Aproximately how many cigarettes per day: 20 - Alcohol/Substance Use Hx Alcohol Use: No Admission ROS [facility] Chief Complaint: Heroin withdrawal symptoms Allergies/Adverse Reactions: Allergies Allergy/AdvReac Type Severity Reaction Status Date / Time No Known Allergies Allergy Verified 01/18/18 14:47 History of Present Illness: 23 years old with 3 years of heroin dependence is seeking admission to detox. Patient has been admitted for detox and has always left against medical advice. Patient is in withdrawal, very anxious and vomiting. Patient has promised to complete detox this time. Risks and consequences of not completing detox reinforced. She denies suicidal ideation a this time Exam Limitations: Intoxication - Ebola screening Have you traveled outside of the country in the last 21 days: No (N) Have you had contact with anyone from an Ebola affected area: No Do you have a fever: No - Review of Systems Constitutional: Chills, Loss of Appetite, Malaise, Changes in sleep EENT: reports: Nose Congestion Respiratory: reports: No Symptoms reported Cardiac: reports: No Symptoms Reported GI: reports: Nausea, Poor Appetite, Poor Fluid Intake, Vomiting (x3), Abdominal cramping : reports: No Symptoms Reported Musculoskeletal: reports: Back Pain, Joint Swelling Integumentary: reports: Dryness, Flushing Neuro: reports: Tingling, Tremors Endocrine: reports: No Symptoms Reported Hematology: reports: No Symptoms Reported Psychiatric: reports: Mood/Affect Appropiate, Orientated x3, Anxious Other Systems: Reviewed and Negative Patient History - Patient Medical History Hx Anemia: No Hx Asthma: No Hx Chronic Obstructive Pulmonary Disease (COPD): No Hx Cancer: No Hx Cardiac Disorders: No Hx Congestive Heart Failure: No Hx Hypertension: No Hx Hypercholesterolemia: No Hx Pacemaker: No HX Cerebrovascular Accident: No Hx Seizures: No Hx Dementia: No Hx Diabetes: No Hx Gastrointestinal Disorders: No Hx Liver Disease: No Hx Genitourinary Disorders: No Hx Sexually Transmitted Disorders: No Hx Renal Disease (ESRD): No Hx Thyroid Disease: No Hx Human Immunodeficiency Virus (HIV): No Hx Hepatitis C: No Hx Depression: No Hx Suicide Attempt: No Hx Bipolar Disorder: No Hx Schizophrenia: No - Patient Surgical History Past Surgical History: No Hx Neurologic Surgery: No Hx Cataract Extraction: No Hx Cardiac Surgery: No Hx Lung Surgery: No Hx Breast Surgery: No Hx Breast Biopsy: No Hx Abdominal Surgery: No Hx Appendectomy: No Hx Cholecystectomy: No Hx Genitourinary Surgery: No Hx Section: No Hx Orthopedic Surgery: No Hx Hysterectomy: No Anesthesia Reaction: No - PPD History Previous Implant?: Yes Date: 02/17/18 Results: AMA PPD to be Administered?: Yes - Reproductive History Patient is a Female of Child Bearing Age (11 -55 yrs old): Yes Last Menstrual Period: 02/01/19 - Smoking Cessation Smoking history: Current every day smoker Have you smoked in the past 12 months: Yes Aproximately how many cigarettes per day: 20 Cigars Per Day: 0 Hx Chewing Tobacco Use: No Initiated information on smoking cessation: Yes 'Breaking Loose' booklet given: 01/16/19 - Substance & Tx. History Hx Alcohol Use: No Hx Substance Use: Yes Substance Use Type: Heroin, Marijuana, Opiates Hx Substance Use Treatment: Yes ([facility]) - Substances abused Heroin Substance route: Inhalation Amount used: 10 bags Age of first use: 20 Date of last use: 01/15/19 Admission Physical Exam [facility] - Vital Signs Vital Signs: Vital Signs - 24 hr 01/16/19 02:56 Temperature 97.4 F L Pulse Rate 76 Respiratory 18 Rate Blood Pressure 125/87 - Physical General Appearance: Yes: Severe Distress, Tremorous, Irritable, Sweating, Anxious HEENTM: Yes: Within Normal Limits Respiratory: Yes: Lungs Clear, Normal Breath Sounds, No Respiratory Distress Neck: Yes: Supple Breast: Yes: Breast Exam Deferred Cardiology: Yes: Regular Rhythm, Regular Rate Abdominal: Yes: Normal Bowel Sounds Genitourinary: Yes: Within Normal Limits Back: Yes: Normal Inspection Musculoskeletal: Yes: Within Normal Limits Extremities: Yes: Tremors Neurological: Yes: Within Normal Limits, Alert, Normal Mood/Affect Integumentary: Yes: Warm Lymphatic: Yes: Within Normal Limits - Diagnostic (1) Opioid dependence with withdrawal Current Visit: Yes Status: Acute (2) Sedative hypnotic or anxiolytic dependence Current Visit: Yes Status: Chronic (3) Cannabis abuse, uncomplicated Current Visit: Yes Status: Chronic (4) Nicotine dependence Current Visit: Yes Status: Chronic Qualifiers: Nicotine product type: cigarettes Substance use status: uncomplicated Qualified Code(s): F17.210 - Nicotine dependence, cigarettes, uncomplicated Cleared for Admission [facility] - Detox or Rehab [facility] Level of Care: Medically Managed Detox Regimen/Protocol: Methadone Breathalyzer - Breathalyzer Breathalyzer: 0 Urine Drug Screen - Test Device Lot number: [id number] Expiration date: 09/02/20 - Control Is test valid?: Yes - Results Drug screen NEGATIVE: Yes Urine drug screen results: THC-Marijuana, MOP-Opiates, BUP-Suboxone Inpatient Rehab Admission - Rehab Decision to Admit Inpatient rehab admission?: No
[2019-01-16] MEDS ORDERED: MELATONIN 5 MG TABLETS PO PRN (03:28)
[2019-01-16] MEDS ORDERED: MAGNESIUM HYDROX 2400MG/30ML ORAL SUSPENSION 30 ML CUP PO PRN (03:28)
[2019-01-16] MEDS ORDERED: METHADONE HCL 10 MG TABLET (FOR DETOX USE ONLY) PO ONE (03:28)
[2019-01-16] MEDS ORDERED: cloNIDine HCL 0.1 MG TABLET PO PRN (03:28)
[2019-01-16] MEDS ORDERED: NICOTINE POLACRILEX 2 MG GUM BUC PRN (03:28)
[2019-01-16] MEDS ORDERED: MENTHOL/PHENOL 1 EACH UD MM PRN (03:28)
[2019-01-16] MEDS ORDERED: BISMUTH SUBSALICYLATE 524 MG/30 ML UD PO PRN (03:28)
[2019-01-16] MEDS ORDERED: ACETAMINOPHEN 325 MG TABLET (FP) PO PRN ×2 (03:28)
[2019-01-16] MEDS ORDERED: IBUPROFEN 400 MG TABLET (FP) PO PRN (03:28)
[2019-01-16] MEDS ORDERED: MAG HYDROX/AL HYDROX/SIMETH 30 ML UNIT-DOSE CUP PO PRN (03:28)
[2019-01-16] MEDS ORDERED: MAGNESIUM CITRATE 300 ML BOTTLE PO PRN (03:28)
[2019-01-16] MEDS: METHOCARBAMOL 500 MG TABLET PO PRN ×2 (10:45→18:04)
[2019-01-16] MEDS: NICOTINE 14 MG/24 HOURS TOPICAL PATCH TD SCH (10:45)
[2019-01-16] MEDS: hydrOXYzine PAMOATE 25 MG CAPSULE (FP) PO PRN ×3 (10:45→21:59)
[2019-01-16] MEDS: PRENATAL VITAMINS W/ FOLIC ACID TABLET (FP) PO SCH (10:46)
--- NOTE | 2019-01-16 13:01 | PN ---
BHS COWS - Scale Resting Pulse: 0= [place] 80 or Below Sweatin= Chills/Flushing Restless Observation: 1= Difficult to Sit Still Pupil Size: 1= Pupils >than Normal Bone or Joint Aches: 2= Severe Diffuse Aches Runny Nose/ Eye Tearin= Nasal Congestion GI Upset > 30mins: 2= Nausea/Diarrhea Tremor Observation of Outstretched Hands: 2= Slight Tremor Visible Yawning Observation: 1= 1-2x During Session Anxiety or Irritability: 2=Irritable/Anxious Goose Flesh Skin: 0=Smooth Skin COWS Score: 13 BHS Progress Note (SOAP) Subjective: alert,irritable,anxious,interrupted sleep,pain in the body and back Objective: 01/16/19 13:01 Laboratory Last Values POC Urine HCG, Qual Negative 01/16/19 03:01 labs pending Assessment: 01/16/19 13:01 withdrawal symptom Plan: continue detox methadone regimen
[2019-01-16] MEDS ORDERED: THIAMINE HCL 100 MG TABLET (FP) PO SCH (22:00)
[2019-01-17] MEDS: METHOCARBAMOL 500 MG TABLET PO PRN (08:53)
[2019-01-17] MEDS ORDERED: METHADONE HCL 10 MG TABLET (FOR DETOX USE ONLY) ONE (09:09)
[2019-01-17] MEDS ORDERED: METHADONE HCL 5 MG TABLET (FOR DETOX USE ONLY) ONE (09:10)
[2019-01-17 09:38] VITALS: PULSE 62
[2019-01-17 09:44] LABS: HEMATOCRIT 39.8 % (32.4-45.2); HEMOGLOBIN 13.4 GM/dL (10.7-15.3); MCH 31.1 pg (25.7-33.7); MCHC 33.6 g/dl (32.0-36.0); MEAN CELL VOLUME 92.5 fl (80-96); MEAN PLT VOLUME 8.4 fl (7.5-11.1); PLATELET COUNT 294 K/MM3 (134-434); RDW 12.9 % (11.6-15.6); WHITE BLOOD COUNT 5.8 K/mm3 (4.0-10.0)
--- NOTE | 2019-01-17 09:54 | PN ---
BHS COWS - Scale Resting Pulse: 0= [place] 80 or Below Sweatin= Chills/Flushing Restless Observation: 0= Sits Still Pupil Size: 0= Normal to Room Light Bone or Joint Aches: 1= Mild Discomfort Runny Nose/ Eye Tearin= Nasal Congestion GI Upset > 30mins: 2= Nausea/Diarrhea (no diarrhea) Tremor Observation of Outstretched Hands: 2= Slight Tremor Visible Yawning Observation: 1= 1-2x During Session Anxiety or Irritability: 2=Irritable/Anxious Goose Flesh Skin: 0=Smooth Skin COWS Score: 10 S Progress Note (SOAP) Subjective: 23 years old female admitted on 01/16/19 for opiate withdrawal sx management treated with methadone detox regimen ate breakfast tolerated food well resting on bed feeling tired limited conversation with staff Objective: 01/17/19 10:07 Vital Signs Temperature 99.7 F H 01/17/19 09:37 Pulse Rate 62 01/17/19 09:37 Respiratory Rate 18 01/17/19 09:37 Blood Pressure 115/84 01/17/19 09:37 O2 Sat by Pulse Oximetry (%) Laboratory Last Values WBC 5.8 K/mm3 (4.0-10.0) 01/17/19 08:10 RBC 4.30 M/mm3 (3.60-5.2) 01/17/19 08:10 Hgb 13.4 GM/dL (10.7-15.3) 01/17/19 08:10 Hct 39.8 % (32.4-45.2) 01/17/19 08:10 MCV 92.5 fl (80-96) 01/17/19 08:10 MCH 31.1 pg (25.7-33.7) 01/17/19 08:10 MCHC 33.6 g/dl (32.0-36.0) 01/17/19 08:10 RDW 12.9 % (11.6-15.6) 01/17/19 08:10 Plt Count 294 K/MM3 (134-434) 01/17/19 08:10 MPV 8.4 fl (7.5-11.1) 01/17/19 08:10 POC Urine HCG, Qual Negative 01/16/19 03:01 lab noted Assessment: 11/14/19 10:08 opiate withdrawal sx Plan: continue methadone detox regimen
[2019-01-17] MEDS ORDERED: METHADONE (DETOX) 20 MG, METHADONE (DETOX) 5 MG PO ONE (10:00)
[2019-01-17 10:10] LABS: ALBUMIN 3.7 g/dl (3.4-5.0); BILIRUBIN,TOTAL 0.4 mg/dL (0.2-1); BLOOD UREA NITROGEN 12.7 mg/dL (7-18); CALCIUM 9.2 mg/dL (8.5-10.1); CREATININE 0.7 mg/dL (0.55-1.3); POTASSIUM 4.6 mmol/L (3.5-5.1); TOT PROT 6.4 g/dl (6.4-8.2)
[2019-01-17] MEDS: PRENATAL VITAMINS W/ FOLIC ACID TABLET (FP) PO SCH (10:42)
[2019-01-17] MEDS: NICOTINE 14 MG/24 HOURS TOPICAL PATCH TD SCH (10:42)
--- NOTE | 2019-01-17 12:43 | EKG ---
Test Reason : Blood Pressure : / mmHG Vent. Rate : 067 BPM Atrial Rate : 067 BPM P-R Int : 120 ms QRS Dur : 084 ms QT Int : 404 ms P-R-T Axes : 057 073 051 degrees QTc Int : 426 ms SINUS RHYTHM WITH MARKED SINUS ARRHYTHMIA OTHERWISE NORMAL ECG WHEN COMPARED WITH ECG OF 14-NOV-2017 18:55, NO SIGNIFICANT CHANGE WAS FOUND Confirmed by ELVA VALENZUELA, FABY ([id number]) on 01/17/2019 12:43:22 PM Referred By: Ruperto Horton Confirmed By:FABY STEVENSON MD
[2019-01-17 13:29] VITALS: BP 113/72; TEMP 97.4
[2019-01-18] MEDS ORDERED: METHADONE HCL 10 MG TABLET (FOR DETOX USE ONLY) PO ONE (10:00)
[2019-01-19] MEDS ORDERED: METHADONE (DETOX) 10 MG, METHADONE (DETOX) 5 MG PO ONE (10:00)
[2019-01-20] MEDS ORDERED: METHADONE HCL 10 MG TABLET (FOR DETOX USE ONLY) PO ONE (10:00)
[2019-01-21] MEDS ORDERED: METHADONE HCL 5 MG TABLET (FOR DETOX USE ONLY) PO ONE (06:00)
== END 2019-01-17 17:55 | disposition left against medical advice (07) | DRG 770 ==
LOC: YASAS 20:35 → Y3N 01-16 03:25
PROVIDERS: ADMIT Allergy & Immunology; ATTEND Allergy & Immunology
PROC: HZ2ZZZZ Detoxification Services for Substance Abuse Treatment (ICD-10-PCS; principal; 2019-01-16)
DX: F11.23 Opioid dependence with withdrawal (principal); F13.20 Sedative, hypnotic or anxiolytic dependence, uncomplicated; F12.10 Cannabis abuse, uncomplicated; F17.210 Nicotine dependence, cigarettes, uncomplicated
CPT/HCPCS: 36415; 80053; 81025; 85027; 86593; 93005; 93010